=== PATIENT | male | born 1955 | race Caucasian/White ===

== ENCOUNTER 2024-12-27 13:07 | Outpatient (AMB) | payer OTHER, SELFPAY ==
--- NOTE | 2024-12-27 13:07 | A.OFFVIS_ITS ---
Intake Visit Reasons: Bladder mass new patient visit Intake Note: New patient presents today for initial visit for bladder mass Urology Medication:None Blood Thinner:None Antibiotic Allergies:None Allergies No Known Allergies Allergy (Verified 12/27/24 13:08) Medication List - Last Reconciled 12/27/24 by Lily García MD dulaglutide (Trulicity) mg subcut levothyroxine 150 mcg PO DAILY lisinopril 20 mg PO DAILY metformin ER 1,000 mg PO BID pregabalin 50 mg PO BID rosuvastatin 20 mg PO BEDTIME sulfamethoxazole-trimethoprim 800-160 mg 1 tab PO BID HPI Comments Details: 12/27/24--Rafita is a 69-year-old male who presents for a tele video new patient visit due to hematuria and bladder mass. The patient states he saw blood in his urine and was treated for urinary tract infection after which the hematuria resolved. 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 The patient states limited nicotine use, he smoked occasional cigars over 2 year period about 30 years ago. Denies FH prostate cancer, states MGM had skin cancer. I have reviewed the referral note the patient had an ultrasound retroperitoneum noting a 1.1 cm posterior right-sided bladder mass, right kidney lower pole cyst 4.9 cm. Plan discussed further evaluation with CT urogram and office cystoscopy. We will check PSA screening. [facility] Medical History Obesity Thyroid disease Diabetes type 2 Osteoarthritis Sleep apnea Hypertension Review of Systems Const All systems reviewed & are unremarkable except as noted in HPI and below Reports no additional complaints Eyes Reports no additional complaints ENT Reports no additional complaints Card Reports no additional complaints Resp Reports no additional complaints GI Reports no additional complaints Reports as per HPI Musc Reports no additional complaints Skin/Breast Reports system reviewed and no additional complaints, except as documented Neuro Reports no additional complaints Psych Reports no additional complaints Endo Reports no additional complaints Ankit/Lymph Reports no additional complaints Aller/Immun Reports no additional complaints Physical Exam Const General: healthy appearing and no acute distress Orientation/consciousness: patient oriented x3 HEENT Head: Yes normocephalic and Yes atraumatic Eyes Conjunctivae: conjunctivae normal Neck Neck: Yes normal visual inspection Resp Effort & Inspection: normal respiratory effort Neuro General: patient oriented x3 Psych Appearance: grossly normal Affect: normal affect Telehealth Telehealth Telehealth Platform: [employer] Location of provider rendering services: practice address Location of patient: address on file Patient Identification confirmed using: Name, : Yes Telehealth method: video Patient verbally consented to treatment: Yes Patient verbally consented to billing insurance company: Yes Patient informed of any privacy concerns related to visit: Yes Assessment & Plan Assessment & Plan (1) Gross hematuria: Code(s): R31.0 - Gross hematuria Category: Medical (2) Bladder mass: Code(s): N32.89 - Other specified disorders of bladder Category: Medical (3) History of UTI: Code(s): Z87.440 - Personal history of urinary (tract) infections Category: Medical (4) Screening PSA (prostate specific antigen): Code(s): Z12.5 - Encounter for screening for malignant neoplasm of prostate Category: Medical Plan CT urogram, BUN and creatinine, PSA screening, follow-up office cystoscopy Orders: Orders Blood Urea Nitrogen Today N32.89 - Other specified disorders of bladder, R31.0 - Gross hematuria CT urogram Today N32.89 - Other specified disorders of bladder, R31.0 - Gross hematuria Creatinine Today N32.89 - Other specified disorders of bladder, R31.0 - Gross hematuria PSA,Total (Free>4and<10) Today Z12.5 - Encounter for screening for malignant neoplasm of prostate Patient Instructions: The patient had an opportunity to ask questions regarding treatment plan. The patient expressed understanding and agreement with the above treatment plan. The patient is aware they should contact our office by phone for worsening of their current condition or the appearance of new symptoms. Compliance is encouraged with any medications and followup testing that is ordered. It is a privilege to be allowed the opportunity to participate in the urologic care of your patient. If you have any questions or concerns regarding treatment for the above conditions please do not hesitate to contact me. The office telephone contact is [phone]. This note is constructed in part using voice recognition software. While every effort has been made to ensure accuracy solar energy consultant and designer errors may have been included. Yours sincerely, Lily García MD Coding Level of Care Code Tele New Pt Level 4 (18069) Diagnoses Gross hematuria R31.0 Bladder mass N32.89 History of UTI Z87.440 Screening PSA (prostate specific antigen) Z12.5
--- OUTSIDE RECORDS SUMMARY | 2024-12-27 13:41 | XMS_ITS | Data Portability ---
Author Organization [facility], [facility] Address [address] [place] [address] Care Team Providers Care Client Application Support Engineer Name Role Phone TREMAINE RODRIGUEZ Ic Designer [facility] AZALIA LOPEZ Vascular Surgeon PURNIMA PEREZ Primary Care Provider [facility] Orthopedist Assessment Encounter Date Assessment Date Assessment LastModified by Organization Details LastModified Time 02/02/2024 02/02/2024 Visit 4 10 Next visit : Short Term Goals: In 4 weeks, patient will: 1. Perform sit to stand from WC to 2WW in one attempt w/ Min A. 2. Stand for 5 min at p-bars or 2WW w/ UE support as needed and close S. 3. Ambulate for 10 steps using 2WW w/ gait belt and Min A. Skilled Nursing Goals: In 8 weeks, patient will: 1. Perform sit to stand from WC to 2WW in one attempt w/ CGA. 2. Stand independently for 10 min at p-bars or 2WW w/ UE support as needed. 3. Ambulate for 20 feet using 2WW w/ close S. 4. Demonstrate independence with comprehensive HEP. Subjective : I've been having a hard time w/ transportation. I've been doing pretty well standing up out of my WC at home, getting out of bed w/o the isreal lift. It's hard b/c my knees [extend] so slowly. I haven't used the isreal lift in about a month; I've been able to transfer from the bed to my WC using my night stand. I've been practicing standing. Objective : -1st rep of sit to stand from WC to p-bars in 1 attempt w/ use of hands Therex : -reviewed HEP w/ pt, no additions this date. -standing lateral weight shift Therapeutic Activities : to improve functional performance during transfers and standing tolerance -sit to stand at p-bars w/ CGA -standing at p-bars 10 sec, 7 sec, 5 sec, 10 sec Neuromuscular Re-ed : Manual Therapy : Assessment : Advised pt to consider short-term rehab facility for post-surgical rehab as they will have the equipment and personnel to provide more intense rehab than either home-based or outpatient PT. Counseled pt re: importance of increasing his standing tolerance and WB on his R LE if his end goal is to perform ADLs and mobility tasks w/o need for WC. Plan : follow up as needed Access Code: [email or web address] URL: [email or web address] Date: 12/07/2023 Prepared by: Isaura Leigh Exercises - Seated Anterior Weight Shifting - 3 x daily - 7 x weekly - 1 sets - 10 reps - Seated March - 1 x daily - 7 x weekly - 3 sets - 10 reps - Seated Long Arc Quad - 1 x daily - 7 x weekly - 3 sets - 10 reps - Seated Heel Raise - 1 x daily - 7 x weekly - 3 sets - 10 reps - Seated Chair Push Ups - 1 x daily - 7 x weekly - 3 sets - 10 reps - Supine Knee Extension Stretch on Towel Roll - 1 x daily - 7 x weekly - 3 sets - 10 reps Patient Education - Pressure Relief in a Manual Wheelchair [email or web address] Not available 02/02/2024 16:43:19 04/05/2024 04/05/2024 TYPE 2 DIABETES: on metformin and Trulicity in setting of morbid obesity (BMI previously close to 60 but improving in 2017). 2019- off briefly when had no visit and no labs. 2020- Doing well on metformin and trulicity. 08/04: Left foot ulcer. Had cellulitis and course of doxycycline 03/05: Ulcer better. A1c at goal at [facility] 3.0. Will increase to 4.5 to maximize impact on CVD and weight. 08/05: A1c good. Using Trulicity 3.0 because 4.5 unavailable. Pt. to contact pharmacy re:availability. Could also change to Mounjaro (will help weight). 06/06: still trulicity 3 (can't get 4.5) but ongoing wt. loss and a1c at goal. 10/08: Try to switch to Mounjaro (for ongoing weight). 04/07: Doing well on trulicity and metformin. DYSLIPIDEMIA: 05/07 : 132/181/34/62. on simva 20. Given sl increase in LDL and also TG, change to rosuva. 04/07 and 10/08: On rosuva now. labs today. 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 2020- TSH= 0.05 (11/02); lowest than any prior. 08/04: TSH lower at 0.08. Nodules (bx benign) appear to be increasing (PRELIM) 03/05: Going for thyroidectomy (Wil) in 05/06. 08/05: On 150mcg. due for labs but out of med recently (Rx today for 150) 06/06: Stable. 04/07: TSH low. adjust dose. OBESITY: In past, have discussed idea of bariatric surgery (Pt not interested- knows relatives who didn't do great). Had lost 60+ lbs in past with lifestyle changes. 7 grandkids may be a reason (8 down to 2) 2020- continues to do well with efforts to lose weight. 2021: Planning for residential in 04/05 and hopes to pursue better habits. Some limitations on walking due to left foot numbness (spinal stenosis). 06/06: Has done great with metformin/trulici ty (only 3- can't get 4.5). 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 10/08: In wheelchair. 04/07: in wheelchair with plans for cervical spine surgery. Has lost weight. Enhanced Provider time spent performing enhanced activities which may include, but are not limited to: reviewing tests, obtaining and/or reviewing patient history; ordering medications, test or procedures; EMR documentation; communication with patient, family, caregiver(s), VNA; pre-visit prep time communication with specialists, ER staff. Time spent: 41 (minutes) 04/07 10/08: change to mounjaro (weight). encourage PT (maybe aquaerobic/pool tx); emphasize foot care. 04/07: trulicity/metform in: a1c at goal. thyroid- adjust dose (TSH low). 150mcg x 6.5/7. [email or web address] Not available 04/05/2024 14:38:16 07/02/2024 07/02/2024 We completed you r Medicare Wellness exam today. This was an opportunity to assess your overall well being including your ability to care for yourself, your mobility, memory, mental health, as well as your safety. With advancing age, it is important to assign someone in your life as your Health Care Proxy (HCP). This person should know what is important to you and what your wishes are for medical procedures if you cannot communicate your wishes yourself (severe illness, unconsciousness). We discussed having a completed Health Care Proxy form today. In addition, today we started a conversation about your End of Life wishes. These conversations will continue over the years. Please consider reading the book, Being Mortal by Isaiah Becker to help frame future conversations. We discussed the purpose of a MOLST form (Medical Orders for Life Sustaining Treatment) and completed this form if appropriate per your wishes. Vision and Hearing are senses that are critically important as we age. When impaired, they can contribute to memory loss, falls, and make it harder to drive, talk to family and friends, and engage in the world. Please get your vision checked yearly and your hearing checked when you start to notice hearing loss. We discussed approaches to lowering your risk of heart disease and stroke . Your blood pressure is higher than goal consider losing weight and lowering your salt intake. Your cholesterol is at goal. We discussed cancer screening you may need as well as vaccines to prevent infections. Colon Cancer : Your risk of colon cancer is average. Due for colorectal screenin. If you are not planning to have a colonoscopy please screen with stool cards yearly. Prostate Cancer : PSA testing for ages 55-69 risks and benefits discussed patient declines testing. Influenza Vaccine : Flu shot yearly. Tetanus Vaccine : Every 10 years. Due: 2023. The following vaccines are available from your pharmacy: Pneumonia Vaccine : PCV20: once after age 65. Shingles Vaccine : 2 shots after age 50. Covid Vaccine : Make sure you have received the most up to date covid vaccine. Your personal health goal for the year is: [email or web address] Not available 07/02/2024 10:01:26 12/06/2024 12/06/2024 TYPE 2 DIABETES: on metformin and Trulicity in setting of morbid obesity (BMI previously close to 60 but improving in 2017). 2019- off briefly when had no visit and no labs. 2020- Doing well on metformin and trulicity. 08/04: Left foot ulcer. Had cellulitis and course of doxycycline 03/05: Ulcer better. A1c at goal at trulicity 3.0. Will increase to 4.5 to maximize impact on CVD and weight. 08/05: A1c good. Using Trulicity 3.0 because 4.5 unavailable. Pt. to contact pharmacy re:availability. Could also change to Mounjaro (will help weight). 06/06: still trulicity 3 (can't get 4.5) but ongoing wt. loss and a1c at goal. 10/08: Try to switch to Mounjaro (for ongoing weight). 04/07: Doing well on trulicity and metformin. 12/07: continue same regimen. Concerned about ACR but high value at time of UTI. Repeat in 4-6 weeks. DYSLIPIDEMIA: 05/07 : 132/181/34/62. on simva 20. Given sl increase in LDL and also TG, change to rosuva. 04/07 and 10/08: On rosuva now. labs today. 12/07: OK on rosuva POST-OPERATIVE HYPOTHYROIDISM- Hx of MNG with subclinical hyperthyroidism - s/p Thyroidectomy by Wil 05/06. 2020- TSH= 0.05 (11/02); lowest than any prior. 08/04: TSH lower at 0.08. Nodules (bx benign) appear to be increasing (PRELIM) 03/05: Going for thyroidectomy (Wil) in 05/06. 08/05: On 150mcg. due for labs but out of med recently (Rx today for 150) 06/06: Stable. 04/07: TSH low. adjust dose. 12/07: doing OK on 150 x 6.5/7. OBESITY: In past, have discussed idea of bariatric surgery (Pt not interested- knows relatives who didn't do great). Had lost 60+ lbs in past with lifestyle changes. 7 grandkids may be a reason (8 down to 2) 2020- continues to do well with efforts to lose weight. 2021: Planning for residential in 04/05 and hopes to pursue better habits. Some limitations on walking due to left foot numbness (spinal stenosis). 06/06: Has done great with metformin/trulici ty (only 3- can't get 4.5). 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 10/08: In wheelchair. 04/07: in wheelchair with plans for cervical spine surgery. Has lost weight. 12/07: Improving some and able to use walker. encourage efforts 10/08: change to mounjaro (weight). encourage PT (maybe aquaerobic/pool tx); emphasize foot care. 04/07: trulicity/metform in: a1c at goal. thyroid- adjust dose (TSH low). 150mcg x 6.5/7. 12/07: ACR up but had UTI. repeat in 3 months. [email or web address] Not available 12/06/2024 12:12:59 Plan of Treatment Reminders Order Date Submit Date Provider Last Modified By Organization Details Last Modified Time Details Appointments Medica l Manage ment 30 2024 09:30A M ISSA BOWEN Not available Not available Not available Alicia matthews Eye Exam, 20 Min 2024 10:40A M Adelita Navarro OD Not available Not available Not available Follow Up, 40 2024 09:20A M Tremaine Rodriguez MD Not available Not available Not available Lab T4, free, serum 2024 025 [facility], [address] [place] [address], [id number], 12/17/2024 15:18:55 TSH, serum or plasma 2024 025 [facility], [address] [place], [address], 12/17/2024 15:18:55 microa lbumin /creat inine, ratio panel, urine - to be done in 12/2024 - separa te from any other standi ng orders . 2024 025 [facility], [address] [place] [address], [id number], 12/17/2024 15:18:56 HbA1c (hemog lobin A1c), blood 2024 025 [facility], [address] [place] [address], [id number], 12/17/2024 15:18:56 microa lbumin /creat inine, ratio panel, urine 2024 025 [facility], [address] [place] [address], [id number], 12/17/2024 15:18:56 CMP, serum or plasma 2024 025 [facility], [address] [place] [address], [id number], 12/17/2024 15:18:56 lipid panel, serum 2024 025 [facility], [address] [place] [address], [id number], 12/17/2024 15:18:56 cultur e, urine 2024 025 [facility], [address] [place] [address], [id number], 11/25/2024 17:48:35 fecal occult blood, immuno assay, stool - Lab- Create annual order [facility] h -IFO BT order set. 2023 024 [facility], [address] [place] [address], [id number], 12/17/2024 15:18:55 T4, free, serum 2023 024 [facility], [address] [place] [address], [id number], 11/22/2024 15:42:27 TSH, serum or plasma 2023 024 [facility], [address] [place] [address], [id number], 11/22/2024 16:13:03 HbA1c (hemog lobin A1c), blood 2023 024 [facility], [address] [place] [address], [id number], 11/22/2024 14:00:37 microa lbumin /creat inine, ratio panel, urine 2023 024 [facility], [address] [place] [address], [id number], 11/22/2024 16:43:40 CMP, serum or plasma 2023 024 [facility], [address] [place] [address], [id number], 11/23/2024 12:43:22 lipid panel, serum 2023 024 [facility], [address] [place] [address], [id number], 11/23/2024 12:43:23 Referral urolog ist referr al - edward hematu lali, hx of well contro lled T2DM, simple cyst on R kidney ; 1.1 cm dictaphone operator ior R sided bladde r mass ; R renal cyst 4.9 cm. 2024 025 aramis Calix MD, [address] [place] [address] Dr Brennen Adriana, [place], [id number], 11/27/2024 15:57:42 Procedures None record ed. Surgeries None record ed. Imaging US, retrop eriton eum - edward hematu lali, hx of benign cyst on R kidney 2024 025 [facility] (Imaging), [address] , [place], [address], 11/22/2024 13:06:17 Medication Orders Debrox 6.5 % ear drops 2023 025 [id number], [address] [place], [address], 12/06/2024 10:20:09 pregab elia 50 mg capsul e 2023 024 [email or web address], [address] [place], [address], 07/02/2024 11:56:42 Patient TargetsNo targets recorded. Patient Instructions Encounter Date Encounter Id Patient Instructions Last Modified By Organization Details Last Modified Time 04/05/2024 [id number] - Get labs done every 3 months - Stay on metformin - Stay on Trulicity 4.5 weekly. - Get labs done as ordered- now and every 3 months. - Lotion to feet. - Contact office if any symptoms of excess thyroid (heart racing, unexplained weight loss, feeling jittery/nervous/ anxious, change in frequency of moving bowels, tremors, or insomnia) - Continue taking thyroid hormone every day away from other food and especially from other minerals like calcium (dairy), iron, magnesium, etc. - Contact office if any symptoms of low thyroid (excess fatigue, unexplained weight gain, feeling much more cold than usual, constipation, very dry skin) or excess thyroid (heart racing, unexplained weight loss, feeling jittery/nervous/ anxious, change in frequency of moving bowels, tremors, or insomnia) - Stay on rosuvastatin. [email or web address] Not available 04/05/2024 14:34:16 6+ months/ 40 minutes in [facility]. [email or web address] Not available 04/05/2024 14:35:57 07/02/2024 [id number] It was a pleasure to see you today! Keep up to date on recommended screenings and vaccines that we discussed today - Remember to drink plenty of water (1-2 liters a day), keep moving (30 minutes moderate exercise at least 5 days/week), and eat a diet high in plant materials (fruit, veggies, nuts, and beans), lean protein, and healthy sources of fats, and minimal processed foods and red meats. Review the website OldKisstixxpt.org to get more information on the Mediterranean diet, a heart healthy eating plan. Check out Popsugar, Fitness Flarer, Yoga with Matheus or Walk Away the Pounds on youtube for free exercise videos. - Maintain 1200 mg of calcium from food sources daily. Vitamin D 800-1000 units daily can help the absorption of calcium into your bones. - Do regular skin checks and wear sun screen for anytime in the sun greater than 10 minutes. - Regular eye and dental exams Consider STI testing when with new partners - Return in 1 year [email or web address] Not available 07/02/2024 08:35:46 11/22/2024 [id number] Assessment and Plan Diabetes mellitus without complications Hematuria [email or web address] Not available 11/22/2024 19:51:37 12/06/2024 [id number] - Get labs done every 3 months - Stay on metformin - Stay on Trulicity 4.5 weekly. - Get labs done as ordered- now and every 3 months. - Lotion to feet. - Contact office if any symptoms of excess thyroid (heart racing, unexplained weight loss, feeling jittery/nervous/ anxious, change in frequency of moving bowels, tremors, or insomnia) - Continue taking thyroid hormone every day away from other food and especially from other minerals like calcium (dairy), iron, magnesium, etc. - Contact office if any symptoms of low thyroid (excess fatigue, unexplained weight gain, feeling much more cold than usual, constipation, very dry skin) or excess thyroid (heart racing, unexplained weight loss, feeling jittery/nervous/ anxious, change in frequency of moving bowels, tremors, or insomnia) - Stay on rosuvastatin. Not available 10/03/2024 13:12:56 6+ months/ 40 minutes in [facility]. Not available 10/03/2024 13:12:56 Reason for Referral Urologist Referral for Emery hematuria gross hematuria, hx of well controlled T2DM, simple cyst on R kidney; 1.1 cm posterior R sided bladder mass ; R renal cyst 4.9 cm. Referring Physician: Janet Fregoso, Family Medicine, Encounter Date: 11/22/2024 Results Created Date Observation Date Name Description Value Unit Range Abnormal Flag Note LastModifiedBy Organization Detail LastModifiedTime 02/02/20 24 02/02/2024 VITAM IN D 25-HY DROXY TOTAL vitamin D 25-hydroxy EIA 26.0 NG/mL 20.0-9 9.9 Thera py is based on measu remen t of total 25-OH D, with level s less than 20 ng/mL indic ative of Vitam in D defic iency . Level s betwe en 20ng/ mL and 30 ng/mL sugge st insuf ficie ncy. Optim al Level s are great er than 30 ng/mL . Not Available [address], [address], 02/02/2024 15:45:15 03/15/20 24 03/15/2024 CBC WBC 7.24 K/? ? ?L 4.23-9 .07 Not Available [address], [address], 03/15/2024 10:34:09 03/15/20 24 03/15/2024 CBC RBC 5.46 M/? ? ?L 4.63-6 .08 Not Available [address], [address], 03/15/2024 10:34:09 03/15/20 24 03/15/2024 CBC HGB 16.3 g/dL 13.7-1 7.5 Not Available [address], [address], 03/15/2024 10:34:09 03/15/20 24 03/15/2024 CBC HCT 49.2 % 40.1-5 1.0 Not Available [address], [address], 03/15/2024 10:34:09 03/15/20 24 03/15/2024 CBC MCV 90.1 fL 79.0-9 2.2 Not Available [address], [address], 03/15/2024 10:34:09 03/15/20 24 03/15/2024 CBC MCH 29.9 pg 25.7-3 2.2 Not Available [address], [address], 03/15/2024 10:34:09 03/15/20 24 03/15/2024 CBC MCHC 33.1 g/dL 32.3-3 6.5 Not Available [address], [address], 03/15/2024 10:34:09 03/15/20 24 03/15/2024 CBC plt 198 K/? ? ?L 163-33 7 Not Available [address], [address], 03/15/2024 10:34:09 03/15/20 24 03/15/2024 CBC MPV 10.8 fL 9.4-12 .4 Not Available [address], [address], 03/15/2024 10:34:09 03/15/20 24 03/15/2024 CBC neut% 66.0 % 34.0-6 7.9 Not Available [address], [address], 03/15/2024 10:34:09 03/15/20 24 03/15/2024 CBC neut# 4.78 1.78-5 .38 Not Available [address], [address], 03/15/2024 10:34:09 03/15/20 24 03/15/2024 CBC lymph % 20.3 % 21.8-5 3.1 low Not Available [address], [address], 03/15/2024 10:34:09 03/15/20 24 03/15/2024 CBC lymph # 1.47 K/? ? ?L 1.32-3 .57 Not Available [address], [address], 03/15/2024 10:34:09 03/15/20 24 03/15/2024 CBC mono% 7.2 % 5.3-12 .2 Not Available [address], [address], 03/15/2024 10:34:09 03/15/20 24 03/15/2024 CBC mono# 0.52 0.30-0 .82 Not Available [address], [address], 03/15/2024 10:34:09 03/15/20 24 03/15/2024 CBC eo% 5.0 % 0.8-7. 0 Not Available [address], [address], 03/15/2024 10:34:09 03/15/20 24 03/15/2024 CBC eo# 0.36 0.04-0 .54 Not Available [address], [address], 03/15/2024 10:34:09 03/15/20 24 03/15/2024 CBC baso% 1.2 % 0.2-1. 2 Not Available [address], [address], 03/15/2024 10:34:09 03/15/20 24 03/15/2024 CBC baso# 0.09 0.00-0 .08 high Not Available [address], [address], 03/15/2024 10:34:09 03/15/20 24 03/15/2024 CBC RDW-CV 13.2 % 11.6-1 4.4 Not Available [address], [address], 03/15/2024 10:34:09 03/15/20 24 03/15/2024 CBC Ig% 0.300 % 0.000- 1.500 Ig % >0.5 Indic ates possi ble Left Shift Not Available [address], [address], 03/15/2024 10:34:09 03/15/20 24 03/15/2024 CBC Ig# 0.020 0.000- 0.093 Not Available [address], [address], 03/15/2024 10:34:09 03/15/20 24 03/15/2024 CBC NRBC% 0.0 % 0.0-0. 2 Not Available [address], [address], 03/15/2024 10:34:09 03/15/20 24 03/15/2024 CBC NRBC# 0.000 0.000- 0.012 Not Available [address], [address], 03/15/2024 10:34:09 03/15/20 24 03/15/2024 HGB A1C hemoglobin A1C 6.3 % 4.8-6. 0 high Goal: <7% in Patie nts with Diabe linnea An A1c betwe en 5.7-6 .4% is ident ified as pre-d iabet es and sugge sts risk for progr essio n to diabe linnea Two a1c value s of 6.5% or highe r is consi stent with a diagn osis of diabe linnea but may need furth er confi rmati on Not Available [address], [address], 03/15/2024 12:06:03 03/15/20 24 03/15/2024 HGB A1C estimated average glucose 134.1 mg/dL Not Available [address], [address], 03/15/2024 12:06:03 03/15/20 24 03/15/2024 FREE T4 free T4 1.48 NG/dL 0.75-1 .54 Not Available [address] [place], [address], 03/15/2024 14:11:21 03/15/20 24 03/15/2024 TSH TSH 0.10 uIU/m L 0.50-6 .00 low The Amer[employer] can [employer] ge [employer] Endoc rinol ogy and Ameri can Thyro id Assoc iatio n recom mend goal TSH value s betwe en 0.4-4 .0 mIU/m L. Not Available [address], [address], 03/15/2024 14:11:22 11/23/19 25 11/22/2024 HGB A1C hemoglobin A1C 6.8 % 4.8-6. 0 high Goal: <7% in Patie nts with Diabe linnea An A1c betwe en 5.7-6 .4% is ident ified as pre-d iabet es and sugge sts risk for progr essio n to diabe linnea Two a1c value s of 6.5% or highe r is consi stent with a diagn osis of diabe linnea but may need furth er confi rmati on Not Available [address], [address], 11/22/2024 14:00:37 11/23/19 25 11/22/2024 HGB A1C estimated average glucose 148.5 mg/dL Not Available [address], [address], 11/22/2024 14:00:37 11/23/19 25 11/22/2024 FREE T4 free T4 1.25 NG/dL 0.75-1 .54 Not Available [address], [address], 11/22/2024 15:42:27 11/23/19 25 11/22/2024 TSH TSH 0.32 uIU/m L 0.50-6 .00 low The Ameri can [employer]le ge of Endoc rinol ogy and Ameri can Thyro id Assoc iatio n recom mend goal TSH value s betwe en 0.4-4 .0 mIU/m L. Not Available [address], [address], 11/22/2024 16:13:02 11/23/19 25 11/22/2024 MICRO ALBUM IN/CR EATIN INE RATIO PANEL , URINE microalbumin 146.9 mg/L 1.3-20 .0 high VERD= Verif ied by Dilut ion. Not Available [address], [address], 11/22/2024 16:43:40 11/23/19 25 11/22/2024 MICRO ALBUM IN/CR EATIN INE RATIO PANEL , URINE creatinine urine 162.4 mg/dL 30.0-1 25.0 high Not Available [address], [address], 11/22/2024 16:43:40 11/23/19 25 11/22/2024 MICRO ALBUM IN/CR EATIN INE RATIO PANEL , URINE microalb/cre at ratio 90.5 mg/g_ creat 0.0-29 .0 high Not Available [address], [address], 11/22/2024 16:43:40 11/23/19 25 11/23/2024 COMP. METAB OLIC PANEL glucose 108 mg/dL 70-100 high Not Available [address], [address], 11/23/2024 12:43:22 11/23/19 25 11/23/2024 COMP. METAB OLIC PANEL BUN 25 mg/dL 7-18 high Not Available [address], [address], 11/23/2024 12:43:22 11/23/19 25 11/23/2024 COMP. METAB OLIC PANEL creatinine 1.0 mg/dL 0.8-1. 3 Not Available [address], [address], 11/23/2024 12:43:22 11/23/19 25 11/23/2024 COMP. METAB OLIC PANEL B/C 25.0 ratio Not Available [address], [address], 11/23/2024 12:43:22 11/23/19 25 11/23/2024 COMP. METAB OLIC PANEL GFR >=60ML /MIN mL/mi n normal >=60m L/min - Bere l or midly reduc ed <60mL /min- Decre ased kidne y funct ion <15mL /min - Kidne y failu re [facility] calcu lates estim ated Glome rular Filtr ation Rate (eGFR ) using the Chron ic Kidne y Disea se Epide miolo gy Colla borat ion (CKD- EPI) Equat ion (Lamont alarcon et. al 2020) as recom nadya d by the Natio nal Kidne y Found ation . eGFR is based on age, serum creat inine , and sex. CKD-E PI does not calcu late eGFR by race, does not apply to child rambo (age <18 years ), and shoul d not be used in pregn robert. Not Available [address], [address], 11/23/2024 12:43:22 11/23/19 25 11/23/2024 COMP. METAB OLIC PANEL sodium 143 mmol/ L 136-14 5 Not Available [address], [address], 11/23/2024 12:43:22 11/23/19 25 11/23/2024 COMP. METAB OLIC PANEL potassium 5.0 mmol/ L 3.5-5. 1 Not Available [address], [address], 11/23/2024 12:43:22 11/23/19 25 11/23/2024 COMP. METAB OLIC PANEL chloride 104 mmol/ L 96-107 Not Available [address], [address], 11/23/2024 12:43:22 11/23/19 25 11/23/2024 COMP. METAB OLIC PANEL anion gap 16.9 5.0-15 .0 high Not Available [address], [address], 11/23/2024 12:43:22 11/23/19 25 11/23/2024 COMP. METAB OLIC PANEL CO2 22 mmol/ L 21-32 Not Available [address], [address], 11/23/2024 12:43:22 11/23/19 25 11/23/2024 COMP. METAB OLIC PANEL calcium 9.5 mg/dL 8.5-10 .3 Not Available [address], [address], 11/23/2024 12:43:22 11/23/19 25 11/23/2024 COMP. METAB OLIC PANEL total protein 7.9 g/dL 6.4-8. 2 Not Available [address], [address], 11/23/2024 12:43:22 11/23/19 25 11/23/2024 COMP. METAB OLIC PANEL albumin 4.1 g/dL 3.4-5. 0 Not Available [address], [address], 11/23/2024 12:43:22 11/23/19 25 11/23/2024 COMP. METAB OLIC PANEL globulin 3.8 g/dL Not Available [address], [address], 11/23/2024 12:43:22 11/23/19 25 11/23/2024 COMP. METAB OLIC PANEL A/G 1.1 ratio 0.8-2. 0 Not Available [address], [address], 11/23/2024 12:43:22 11/23/19 25 11/23/2024 COMP. METAB OLIC PANEL total bilirubin 0.60 mg/dL 0.00-1 .00 Not Available [address], [address], 11/23/2024 12:43:22 11/23/19 25 11/23/2024 COMP. METAB OLIC PANEL AST 25 U/L 0-37 Not Available [address], [address], 11/23/2024 12:43:22 11/23/19 25 11/23/2024 COMP. METAB OLIC PANEL ALT 47 U/L 6-63 Not Available [address], [address], 11/23/2024 12:43:22 11/23/19 25 11/23/2024 COMP. METAB OLIC PANEL alk. phos. 42 U/L 50-136 low Not Available [address], [address], 11/23/2024 12:43:22 11/23/19 25 11/23/2024 LIPID PANEL cholesterol 99 mg/dL <200 mg/dl Jai able 200-2 39 mg/dl Borde rline High >240 mg/dl High Not Available [address], [address], 11/23/2024 12:43:23 11/23/19 25 11/23/2024 LIPID PANEL triglyceride s 90 mg/dL <150 mg/dL Bere l 150-1 99 mg/dL Borde rline High 200-4 99 mg/dL High >500 mg/dL Very High Not Available [address], [address], 11/23/2024 12:43:23 11/23/19 25 11/23/2024 LIPID PANEL direct HDL 43 mg/dL <40 mg/dl - Major Risk for CHD >60 mg/dl - Negat sudarshan Risk for CHD Not Available [address], [address], 11/23/2024 12:43:23 11/23/19 25 11/23/2024 LDL - CALCU LATED LDL - calculated 38 RISK CATEG ORY LDL GOAL _ CHD or CHD Risk Equiv alent s <100 mg/dl (10-y ear risk >20%) 2+ Risk Facto rs <130 mg/dl (10-y ear risk <= 20%) 0-1 Risk Facto r? <160 mg/dl ? Almos t all peopl e with 0-1 risk facto r have a 10 year risk <10%, thus 10 year risk asses ment in peopl e with 0-1 risk facto r is not may vasquez. Not Available [address], [place], [address], 11/23/2024 12:43:24 11/23/19 25 11/25/2024 CULTU RE, URINE , ROUTI NE culture, urine, routine abnormal CULTU RE, URINE , ROUTI NE Micro Numbe r: [id number] Test Statu s: Final Speci men Sourc e: Urine Speci men Quali ty: Adequ ate Resul t: Great er than 100,0 00 CFU/m L of Prote us mirab ilis P.lowell abili s ----- ----- ----- - INT DION AMOX/ CLAVU LANAT E S <=2 AMP/S ULBAC BRISCOE S <=2 CEFAZ LETTY NR <=4 2 CEFEP SELAM S <=0.1 2 CEFTA ZIDIM E S <=1 CEFTR IAXON E S <=0.2 5 CIPRO FLOXA MADISON S <=0.0 6 GENTA MICIN S <=1 LEVOF LOXAC IN S <=0.1 2 MEROP ENEM S <=0.2 5 NITRO FURAN TOIN R 128 PIP/T AZOBA CTAM S <=4 TRIME THOPR IM/ALVAREZ LFA S <=20 S = Susce ptibl e I = Inter media te R = Resis tant NS = Not susce ptibl e SDD = Susce ptibl e Dose Depen dent * = Not Teste d NR = Not Repor maribel NN = See Thera py Comme nts THERA PY COMME NTS Note 1: For infec tions other than uncom plica maribel UTI cause d by E. coli, K. pneum oniae or P. mirab ilis: Cefaz letty is resis tant if DION > or = 8 mcg/m L. (Dist ingui shing susce ptibl e versu s inter media te for isola linnea with DION < or = 4 mcg/m L requi res addit ional testi ng.) Note 2: For uncom plica maribel UTI cause d by E. coli, K. pneum oniae or P. mirab ilis: Cefaz letty is susce ptibl e if DION <32 mcg/m L and predi cts susce ptibl e to the oral agent s cefac felice, cefdi sheryl, cefpo doxim e, cefpr ozil, cefur oxime , cepha lexin and lorac arbef . Not Available [facility] [place] [facility] [address], [place], [address], 11/25/2024 17:48:35 11/23/19 25 11/22/2024 US, retro perit oneum CLINIC AL HISTOR Y: Gross hematu lali TECHNI QUE: 2D sonogr aphy of the kidney s and bladde r. COMPAR CHACORTA: None. FINDIN GS: Study is limite d by body habitu s. Right kidney 12.3 x 7 cm The right kidney is normal in echote xture. There are no solid masses , stones , or hydron ephros is. There is a lower pole simple cyst measur ing 4.2 x 4.9 x 4.5 cm. Left kidney 13 x 6.4 cm The left kidney is normal in echote xture. There are no solid masses , stones , or hydron ephros is. Ureter al jets are visual ized bilate rally. The there is an echoge patel mass at the dictaphone operator ior right aspect of the bladde r measur ing 0.8 x 1.1 x 1 cm. This is indete rminat e but may repres ents a neopla sm. Recomm end furthe r evalua tion with cystos copy. . The prevoi d bladde r volume is 145.9 mL. The post void bladde r volume is 7.8 mL. The prosta te was not seen due to patien t's body habitu s IMPRES HEMAL: 1. 1.1 cm dictaphone operator ior right- sided bladde r mass. Recomm end furthe r evalua tion with cystos copy. 2. Lower pole right renal cyst measur ing 4.9 cm. Readin g Physic indio: Km Holguin [facility] (Imaging) [address] , [place], [address], 11/23/2024 13:07:09 Result Notes None recorded. 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 653730197 Active Tremaine Rodriguez MD [address] [place] [address], , [facility] 6 11:10:23 Diabetes mellitus 04153171 Completed 09/28/2018 Michael Cordova MD [address] [place] [address], , [facility] 9 14:55:54 Dizzines s 935185557 Active Tremaine Rodriguez MD [address] [place] [address], , [facility] 6 11:10:23 Subdural intracra nial hematoma 35639090 Active 2019October 2019 ANGÉLICA Villavicencio [address] [place] [address], , [facility] 0 14:28:06 Serum creatini ne above referenc e range 293415072 Active 2022 ANGÉLICA GARNETT [address] [place] [address], , [facility] 3 11:13:25 Bilatera l hand weakness 37194714414 121262 Active 2023 ANGÉLICA GARNETT [address] [place] [address], [address] , [facility] 4 10:14:36 Cervical spondylo sis 948918839 Active 2023 NEOS 07/08 offered surgery ANGÉLICA GARNETT [address] [place] [address], [address] , [facility] 4 13:38:33 Mass of urinary bladder 795528624 Active 2024 Janet Fregoso MD [address] [place] [address], [address] , [facility] 5 19:54:21 Sleep apnea 70815478 Completed 200304/01/2016 Michael Cordova MD [address] [place] [address], [address] , [facility] 6 15:47:30 Cellulit is 623499957 Completed 200704/25/2012 Not Available [facility] 3 03:10:52 Essentia l hyperten hemal 15066835 Completed 04/25/2012 Not Available [facility] 3 03:10:52 Non-toxi c uninodul ar goiter 392012990 Completed 10/24/2012 Not Available [facility] 3 03:10:52 Ulcer of foot 63667371 Completed 07/04/2013 Not Available [facility] 3 02:04:17 Osteoart hritis of knee 348668479 Completed 200404/25/2012 Not Available [facility] 3 03:10:52 Spinal stenosis of lumbar region 48936258 Active 2006 eval by P&S xray done 06/06 MRI 07/07 SEVERE DISC STENOSIS L2[facility]07 ANGÉLICA GARNETT [address] [place] [address], [address] , [facility] 4 11:01:43 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 86821567 Active Not Available [facility] 3 03:10:52 Thyroid function tests abnormal 737336511 Completed 09/28/2018 Michael Cordova MD [address] [place] [address], [address] , [facility] 9 14:55:35 Thyroid function tests abnormal 337758850 Completed 10/24/2012 Michael Cordova MD [address] [place] [address], [address] , [facility] 9 14:55:35 Benign essentia l hyperten hemal 7228337 Active 2003 Michael Cordova MD [address] [place] [address], [address] , [facility] 6 21:19:04 Disorder of nervous system due to type 2 diabetes mellitus 718909683 Completed 02/01/2023 ANGÉLICA GARNETT [address] [place] [address], [address] , [facility] 3 10:01:26 Acute suppurat sudarshan otitis media without spontane ous rupture of ear drum 68614885 Completed 200304/25/2012 Not Available [facility] 3 03:10:52 Sciatica 20298464 Active 2006 Not Available [facility] 3 03:10:52 Localize d, primary osteoart hritis 344727015 Completed 200404/25/2012 Not Available [facility] 3 03:10:52 Finding by method 991161139 Completed 200004/25/2012 Not Available [facility] 3 03:10:52 Pneumoni a 764773294 Completed 200004/25/2012 Not Available [facility] 3 03:10:52 Common cold 69651983 Completed 200004/25/2012 Not Available [facility] 3 03:10:52 Knee pain Completed 10/24/2012 Not Available [facility] 3 03:10:52 Obstruct sudarshan sleep apnea syndrome 20019211 Active Tremaine Rodriguez MD [address] [place] [address], [address] , [facility] 6 11:10:23 Non-toxi c multinod ular goiter 44330888 Active benign b 2019; assympto matic hyperthy rodism (needs TFT q 3 months) Michael Cordova MD [address] [place] [address], [address] , [facility] 9 18:12:30 Acute maxillar y sinusiti s 64371373 Completed 200304/25/2012 Not Available [facility] 3 03:10:52 Elevated blood-pr essure reading without diagnosi s of hyperten hemal 201374244 Completed 200304/25/2012 Not Available [facility] 3 03:10:52 Morbid obesity 150167222 Active 2003 Michael Cordova MD [address] [place] [address], [address] , [facility] 6 19:30:33 Uncontro lled type 2 diabetes mellitus 453895212 [facility] 5 14:54:08 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 Not Available [facility] 3 03:10:52 Low back pain 367197147 Active 2006 Not Available [facility] 3 03:10:52 Generali zed osteoart hritis 956160095 Active 2004 xrays bilat knee 09/2022- severe degen change ANGÉLICA GARNETT [address] [place] [address], [address] , [facility] 3 14:20:51 Disorder of lower limb 840893940 Completed 07/04/2013 Not Available [facility] 3 02:03:21 Disorder of lower limb 713282116 Completed 200704/25/2012 Not Available [facility] 3 03:10:52 Acute bronchit is 92382296 Completed 200004/25/2012 Not Available [facility] 3 03:10:52 Problem Notes None recorded. Procedures Surgical History Date Name Laterality Status Provider Name and Address Organization Details Recorded Time 07/02/20 Medicare Wellness Visit completed Suzy Rivera MA [facility] 07/02/2024 08:35:47 07/02/20 Cerumen Removal - Irrigation/Lavage completed Suzy Rivera MA [facility] 07/02/2024 10:45:57 07/02/20 Cardiovascular disease risk reduction counseling completed Suzy Rivera MA [facility] 07/02/2024 08:35:46 02/02/20 80398: Therapeutic Exercise completed Isaura Helms, PT [address] [place], [address], [facility] 02/02/2024 10:34:51 02/02/20 23440: Therapeutic Activities - Direct 1:1 completed Isaura Helms, PT [address] [place], [address], [facility] 02/02/2024 10:34:51 12/21/19 47265: Therapeutic Exercise completed Isaura Helms, PT [address] [place], [address], [facility] 12/21/2023 11:00:10 12/21/19 53738: Therapeutic Activities - Direct 1:1 completed Isaura Helms, PT [address] [place], [address], [facility] 12/21/2023 11:00:10 12/07/19 63876: Therapeutic Exercise completed Isaura Helms, PT [address] [place], [address], [facility] 12/07/2023 17:34:25 12/07/19 18688: Therapeutic Activities - Direct 1:1 completed Isaura Helms, PT [address] [place], [address], [facility] 12/07/2023 17:34:19 11/09/19 Physical Activity Counselling completed Isaura Helms, PT [address] [place], [address], [facility] 11/08/2023 17:50:19 11/09/19 24 31309: PT Eval, Moderate Complexity completed Isaura Helms, PT [address] [place], [address], [facility] 11/12/2023 08:28:28 11/09/19 24 Treatment and Advice completed Isaura Helms, PT [address] [place], [address], [facility] 11/12/2023 08:23:04 05/26/20 23 Physical Activity Counselling completed Isaura Helms, PT [address] [place], [address], [facility] 05/26/2023 08:31:59 05/26/20 92800: PT Eval Low Complexity completed Isaura Helms, PT [address] [place], [address], [facility] 05/26/2023 08:31:59 05/26/20 Treatment and Advice completed Isaura Helms, PT [address] [place], [address], [facility] 05/29/2023 09:03:07 03/02/20 90520: Therapeutic Exercise completed Isaura Helms, PT [address] [place], [address], [facility] 03/02/2023 16:09:31 03/02/20 17850: Manual Therapy completed Isaura Helms, PT [address] [place], [address], [facility] 03/02/2023 16:09:35 02/17/20 93805: Therapeutic Exercise completed Isaura Helms, PT [address] [place], [address], [facility] 02/16/2023 09:16:14 02/17/20 56103: Manual Therapy completed Isaura Helms, PT [address] [place], [address], [facility] 02/16/2023 09:16:22 02/10/20 23 Smoking Cessation Counselling completed Isaura Helms, PT [address] [place], [address], [facility] 02/09/2023 07:22:40 02/10/20 23 Physical Activity Counselling completed Isaura Helms, PT [address] [place], [address], [facility] 02/09/2023 07:22:40 02/10/20 23 09341: PT Eval Low Complexity completed Isaura Helms, PT [address] [place], [address], [facility] 02/09/2023 07:22:40 02/10/20 23 Treatment and Advice completed Isaura Helms, PT [address] [place], [address], [facility] 02/09/2023 09:21:37 12/16/19 23 Medicare Wellness Visit completed Catalina Jefferson MA [facility] 12/15/2022 14:46:55 02/20/20 21 prevention-cardiov ascular risk reduction counseling completed Mita Jerome Jorge Alberto [facility] 02/19/2021 09:58:54 02/20/20 21 prevention-annual alcohol misuse screening completed Mita Jerome [facility] 02/19/2021 09:58:54 02/20/20 21 Advanced Care Planning completed ANGÉLICA Villavicencio [address] [place], [address], [facility] 02/19/2021 13:10:48 06/25/20 20 prevention-cardiov ascular risk reduction counseling cancelled Mita Jerome Jorge Alberto [facility] 06/25/2020 13:43:00 06/25/20 20 prevention-annual alcohol misuse screening cancelled Mita Jerome [facility] 06/25/2020 13:43:00 10/17/19 20 evacuation of subdural hematoma completed Lorraine Bañuelos LPN [facility] 05/08/2020 08:33:09 02/10/20 18 Diabetic Retinal Exam completed Maura Pearl LPN [facility] 02/09/2018 12:11:02 12/22/19 18 Pen Teaching completed Tremaine Rodriguez MD [address] [place], [address], [facility] 12/21/2017 15:34:52 04/21/20 17 Pen Teaching completed Tremaine Rodriguez MD [address] [place], [address], [facility] 04/21/2017 14:47:03 11/18/19 17 Pen Teaching completed Tremaine Rodriguez MD [address] [place], [address], [facility] 11/17/2016 09:28:51 04/15/20 16 Pen Teaching completed Shanda Simms [facility] 04/15/2016 11:54:13 01/01/20 16 Holter Monitor Application completed Margaret Payton [facility] 01/01/2016 11:45:39 09/04/19 16 Refraction completed Nadege Paredes [facility] 09/04/2015 14:42:45 Imaging Results Imaging Date Name Status LastModified by Organization Details LastModified Time 11/22/2024 US, retroperitoneum completed [facility] (Imaging) [address], [place], [address], 11/23/2024 13:07:09 Procedure Notes None recorded. Medical Equipment None Reported. Allergies No known drug allergies Medications Name Sig Start Date Stop Date Status Note LastModified by Organization Details LastModified Time Prescript ion - Prior Authoriza tion Request active Not Available Not Available Not Available metformin 500 mg tablet Take 1 tablet every day by oral route. active Not Available Not Available No t Available doxycycli ne hyclate 100 mg capsule Take 1 capsule twice a day by oral route for 10 days. 08/13 completed Not Available Not Available Not Available Lac-Hydri n 12 % topical cream apply to dry areas of feet daily 2012 active Not Available Not Available Not Avai lable hydrocodo ne 5 mg-acetam inophen 325 mg tablet TAKE 1 TABLET BY ORAL ROUTE EVERY 6 HOURS NEEDED FOR PAIN 2011 active prescrib ed by Erendira August as Not Available Not Available Not Available lisinopri l 20 mg tablet TAKE 1 TABLET BY MOUTH EVERY DAY 2024 active Not Available Not Available Not Avai lable doxycycli ne monohydra te 100 mg tablet Take 1 tablet twice a day by oral route for 10 days. 11/16 completed Not Available Not Available Not Available simvastat in 40 mg tablet TAKE 1/2 TABLET BY MOUTH EVERY DAY active Not Available Not Available No t Available doxycycli ne monohydra te 100 mg capsule Take 1 capsule twice a day by oral route for 14 days. 02/07 completed Not Available Not Available Not Available cephalexi n 500 mg capsule Take 1 capsule 3 times a day by oral route for 5 days. 04/14 completed Not Available Not Available Not Available simvastat in 20 mg tablet TAKE 1 TABLET BY MOUTH EVERY DAY 2021 active Not Available Not Available Not Avai lable lisinopri l 10 mg tablet take 1 tablet by mouth once daily 2008 active Not Available Not Available Not Avai lable levothyro xine 150 mcg tablet TAKE 1 TABLET BY MOUTH EVERY DAY DIRECTED 2023 active Not Available Not Available Not Avai lable oxycodone 5 mg capsule Take 1 capsule every 6 hours by oral route as needed. 2011 active Not Available Not Available Not Avai lable ibuprofen 400 mg tablet Take 1 tablet every 4-6 hours by oral route as needed. 2022 active Not Available Not Available Not Avai lable hydrochlo rothiazid e 12.5 mg capsule TAKE ONE CAPSULE BY MOUTH EVERY DAY 05/30 completed Not Available Not Available Not Available gabapenti n 300 mg capsule Take 1 capsule every day by oral route in the evening for 30 days. active Not Available Not Available No t Available Percocet 5 mg-325 mg tablet Take 1-2 TABLETs EVERY 4 HOURS by oral route. 2011 active Not Available Not Available Not Avai lable lisinopri l 40 mg tablet TAKE 1 TABLET BY MOUTH EVERY DAY 09/28 completed Not Available Not Available Not Available metformin ER 500 mg tablet,ex tended release 24 hr TAKE 2 TABLETS BY MOUTH TWICE A DAY 2023 active Not Available Not Available Not Avai lable Tylenol Extra Strength 500 mg tablet Take 2 tablets every day by oral route as needed. 2022 active PRN Not Available Not Available Not Avai lable rosuvasta tin 20 mg tablet TAKE 1 TABLET BY MOUTH EVERY DAY 2024 active Not Available Not Available Not Avai lable duloxetin e 60 mg capsule,d elayed release TAKE 1 CAPSULE BY MOUTH EVERY DAY 05/25 completed pt not taking 05/18/23 LRD Not Available Not Available Not Available OneTouch UltraSoft Lancets with blood sugar testing tid or as directed 11/17 completed Not Available Not Available Not Available Byetta 10 mcg/dose( 250 mcg/mL)2. 4 mL subcutane ous pen injector INJECT 10MCG SUBCUTAN EOUSLY TWICE A DAY 12/21 completed 12/21/17 changed to bydureon 2 mg weekly per [facility]. Not Available Not Available Not Available pregabali n 50 mg capsule Take 1 capsule twice a day by oral route. 2024 active Not Available Not Available Not Avai lable pregabali n 75 mg capsule Take 1 capsule twice a day by oral route for 30 days. 09/10 completed Not Available Not Available Not Available pregabali n 100 mg capsule Take 1 capsule twice a day by oral route. 2022 active Not Available Not Available Not Avai lable multivita min active daily Not Available Not Available Not Available hydrochlo rothiazid e 12.5 mg tablet TAKE 1 TABLET BY MOUTH ONCE DAILY 2011 active Not Available Not Available Not Avai lable Fish Oil 1,000 mg capsule 1 cap daily 09/15 completed pt not taking 05/30/23 LRD; stopped by dr Tremaine Rodriguez MD Not Available Not Available Not Available diclofena c 1 % topical gel APPLY 2 GRAMS TO THE AFFECTED AREA(S) BY TOPICAL ROUTE 4 TIMES PER DAY NEEDED 2023 active Not Available Not Available Not Avai lable levothyro xine 150 mcg capsule Take 1 capsule every day by oral route. active Not Available Not Available No t Available Accu-Chek Lisa Plus test strips USE DIRECTED TO CHECK BLOOD GLUCOSE 3 TIMES A DAY. 2023 active LV 05/08/20, [place] 09/11/19, labs 04/18/20 Not Available Not Available Not Available Accu-Chek FastClix Lancing Device kit Use as directed to check blood glucose 3 times a day. 2018 active Not Available Not Available Not Avai lable Tanzeum 30 mg/0.5 mL subcutane ous pen injector Inject 0.5 mL subcut once weekly on the same day each week. 11/17 completed Not Available Not Available Not Available Bydureon 2 mg/0.65 mL subcutane ous pen injector Inject 2 mg every week by subcutan eous route. 11/30 completed was changed to trulicit y Not Available Not Available Not Available Trulicity 1.5 mg/0.5 mL subcutane ous pen injector INJECT 0.5 ML EVERY WEEK BY SUBCUTAN EOUS ROUTE. active Not Available Not Available No t Available Trulicity 0.75 mg/0.5 mL subcutane ous pen injector INJECT 0.5 ML SUBCUTAN EOUSLY ONCE WEEKLY. 05/19 completed Not Available Not Available Not Available Accu-Chek Guide Glucose Meter Check blood sugars daily 2020 active Not Available Not Available Not Avai lable Trulicity 3 mg/0.5 mL subcutane ous pen injector INJECT 3 MG SUBCUTAN EOUSLY WEEKLY 04/05 completed Not Available Not Available Not Available Trulicity 4.5 mg/0.5 mL subcutane ous pen injector INJECT 4.5 MG EVERY WEEK BY SUBCUTAN EOUS ROUTE. DX E11.65 2024 active Not Available Not Available Not Avai lable Mounjaro 10 mg/0.5 mL subcutane ous pen injector 12/19 completed insuranc e denied Not Available Not Available Not Available Vitals Date Recorded Body height Heart rate Systolic blood pressure Diastolic blood pressure Provider Name and Address Organization Details Last Updated DateTime 04/05/2024 167.64 cm 69 /min 117 mm[Hg] 75 mm[Hg] Misa RobbalexKUSHAL [facility] 04/05/2024 13:51:54 Date Recorded Body height Body mass index (BMI) Body weight Heart rate Systolic blood pressure Diastolic blood pressure Provider Name and Address Organization Details Last Updated DateTime 4 167.64 cm 47.9 kg/m2 377040. 93 g 76 /min 128 mm[Hg] 80 mm[Hg] [facility] 09:[facility]16 Date Recorded Body height Body mass index (BMI) Body weight Heart rate Systolic blood pressure Diastolic blood pressure Provider Name and Address Organization Details Last Updated DateTime 5 167.64 cm 50.5 kg/m2 384890. 41 g 76 /min 124 mm[Hg] 78 mm[Hg] [facility] 5 09:33:54 Date Recorded Body height Body mass index (BMI) Body weight Provider Name and Address Organization Details Last Updated DateTime 12/06/2024 167.64 cm 50.5 kg/m2 463893.41 g Deepika Johnson [facility] 12/06/2024 10:19:10 Social History Question Answer Notes LastModified by Organization Details LastModified Time Tobacco Smoking Status Never Smoker except for one a year-2008, [facility] 04/05/2024 13:50:05 Do You Have An Advance Directive? Yes Information not available 07/01/2011 Do You Wear A Helmet When Biking? No Information not available 09/09/2015 What Is Your Level Of Caffeine Consumption? Moderate A Coffee In The Morning Information not available 06/25/2020 How Much Tobacco Do You Chew? None Information not available 07/28/2011 What Type Of Diet Are You Following? REGULAR Try Watch Carb/ Sugar Information not available 02/19/2021 Which Illicit Or Recreational Drugs Have You Used? None Denies [email or web address] Information not available 11/17/2016 Are There Any Guns Present In Your Home? Yes Information not available 07/01/2011 Do You Use Insect Repellent Routinely? Yes [email or web address] Information not available 12/15/2022 Live Alone Or With Others? With Others , Son . Daughter Osiris And Her Family Information not available 02/19/2021 CSRP - Narcotics No Informat ion not available 07/28/2011 CSRP Contract Signed And Discussed No Information not available 07/28/2011 Patient Has Health Care Proxy Signed And In Chart Yes [email or web address] Information not available 12/16/2022 DM Disease Process Needs Instruction Information not available 05/25/2012 Nutrition Needs Instruction Information not available 05/25/2012 Physical Activity Needs Instruction Information not available 05/25/2012 Medications Needs Instruction Information not available 05/25/2012 Monitoring Not Assessed Information not available 05/25/2012 Acute Complications Needs Instruction Information not available 05/25/2012 Chronic Complications Needs Instruction Information not available 05/25/2012 Coping Pre-needs Review Information not available 05/25/2012 Behavior Change Pre-needs Review Information not available 05/25/2012 DSME Plan Goal Being Active: Get Up And Walk Around [employer] 1-2x/day At Work Information not available 05/25/2012 DSME Plan Goal Success Initiated Information not available 05/25/2012 DSME Plan Goal Evaluation: 05/25/2012 Information not available 05/25/2012 DSME Plan Initiated: 05/25/2012 MNTx2-3; DM Basics Class; Also To See DEE Information not available 05/25/2012 DSME Plan Status In Progress - Infor mation not available 05/25/2012 CSRP - Stimulants No Information not available 09/09/2015 CSRP - Suboxone No Informati on not available 09/09/2015 Marital Status Arelis fay Meghan n not available 05/31/2012 Mosquito Repellent Used Routinely Yes Information not available 07/01/2011 What Was The Date Of Your Most Recent Tobacco Screening? 11/22/2024 [email or web address] Information not available 11/22/2024 How Many Children Do You Have? 4 3 Grandchild [email or web address] Information not available 04/21/2010 Do You Use Your Seat Belt Or Car Seat Routinely? Yes [email or web address] Information not available 12/15/2022 Seat Belts Used Routinely Yes Information not available 07/01/2011 Smoke Alarm In Home Yes Information not available 07/01/2011 Do You Have Smoke And Carbon Monoxide Detectors In Your Home? Yes [email or web address] Information not available 12/15/2022 Are You Passively Exposed To Smoke? No [email or web address] Information not available 12/15/2022 How Much Tobacco Do You Smoke? No Information not available 09/09/2015 General Stress Level Medium resilient ; Job Stress, Son Joaquin (mood Swings, Anger) Information not available 07/28/2011 Do You Use Sunscreen Routinely? Yes Information not available 07/01/2011 Sex: Male Functional Status Question Answer Note LastModified by Organizat ion Details LastModified Time Do you use any illicit or recreational drugs? No [email or web address] Information not available 08/13/2021 Do you or have you ever used any other forms of tobacco or nicotine? No Information not available 02/18/2022 What is your level of alcohol consumption? None rarely Information not available 08/12/2022 Do you or have you ever used smokeless tobacco? Never used smokeless tobacco [email or web address] Information not available 03/29/2019 What is your occupation? [email or web address] Information not available 07/01/2011 Do you or have you ever used e-cigarettes or vape? Never used electronic cigarettes [email or web address] Information not available 03/29/2019 Mental Status None recorded. Family History Relationship Description Onset Age of this Age Resolved Age Notes LastModified by Organization Details LastModified Time Mother Diabetes mellitus ? type 1 [email or web address] Not available 12/22/2015 11:06:41 Notes:mother Type 1 DM, d 60 [place]; father unknown; sister - spina bifida type problem; MGM cancer on face; MGF d 80 COPD - Up to 7 grandkids- all healthy. oldest is 6. 9-no changes 2017- Daughter has nodules. 2018- No changes. Granddaughter playing t-ball (6y.o.). Grands: 9,6,6,4,4,3,3- all healthy 2019- Family OK. 6 grandkids OK. (3 playing sports) 09/04: Family OK. couple grands doing better with remote school (10 y.o.). 08/04: Daughter going thru divorce. Other may be also. 03/05: Grands OK. 08/05: No changes. New grandson (06/05) total of 7. 2 daughters going through divorces. Medical History Condition Response Diabetes Type II Y Obesity Y Thyroid Disease Y Osteoarthritis Y Hypertension Y Sleep Apnea Y Immunizations Vaccine Type Date Status Note Provider Nam e and Address Organization Details Recorded Time Td(adult) unspecified formulation 1 completed Not Available [facility] 06/30/2011 05:20:34 Tdap 1 completed Not Available [facility] 09/01/2019 02:15:44 Influenza, split virus, trivalent, preservative 3 completed Not Available [facility] 09/01/2019 02:18:37 Influenza, split virus, quadrivalent, PF 6 completed Not Available [facility] 09/01/2019 02:31:08 pneumococcal polysaccharide PPV23 6 completed Not Available [facility] 09/01/2019 02:33:00 Influenza, split virus, quadrivalent, PF 7 completed Not Available [facility] 09/01/2019 02:22:00 Influenza, split virus, quadrivalent, PF 9 completed Not Available [facility] 09/01/2019 02:34:11 Td (adult), 2 Lf tetanus toxoid, preservative free, adsorbed 1 completed ANGÉLICA Villavicencio [address] [place] [address], [id number], [facility] 05/14/2021 09:16:45 Influenza, high-dose, quadrivalent, PF 1 completed ANGÉLICA Villavicencio [address] [place], [address], [facility] 05/14/2021 09:16:45 COVID-19, mRNA, LNP-S, bivalent, PF, 50 mcg/0.5 mL or 25mcg/0.25 mL dose 3 completed Allyn Gale, NATHALIE, BODY PIERCER-BC [address] [place] [address], [id number], [facility] 09/16/2022 08:49:19 COVID-19, mRNA, LNP-S, PF, 30 mcg/0.3 mL dose 1 [facility] 11/22/2024 09:32:28 COVID-19, mRNA, LNP-S, PF, 30 mcg/0.3 mL dose 1 completed [facility] 11/22/2024 09:32:28 Influenza, high-dose, quadrivalent, PF 3 completed Eden Brandon MA [facility] 05/19/2023 11:36:36 Influenza, high-dose, trivalent, PF 4 completed Citlaly Talley LPN [facility] 07/03/2024 10:59:54 COVID-19, mRNA, LNP-S, PF, 30 mcg/0.3 mL dose, scarlett-sucrose 2 completed Tova Rankin CH[facility] 11/22/2024 09:32:28 Past Encounters Encounter ID Performer Location Encounter Start Date Encounter Closed Date Diagnosis/Indication Diagnosis SNOMED-CT Code Diagnosis ICD10 Code Diagnosis Note [id number] Vaishnavi Malik [facility], [address] [place] [address] 10/27/2000 09:00:00 09/04/2008 02:02:29 [id number] Vaishnavi Malik [facility], [address] [place] [address] 11/11/2000 16:00:00 09/04/2008 02:02:29 [id number] Vaishnavi Malik [facility], [address] [place] [address] 11/14/2000 11:30:00 09/04/2008 02:02:29 [id number] Vaishnavi Malik [facility], [address] [place] [address] 11/21/2000 14:00:00 09/04/2008 02:02:29 [id number] [facility] , [facility] [address] [place] [address] 11/21/2000 14:30:00 09/04/2008 02:02:29 [id number] MD ELISABETH Bran, [facility], OFFICE [address] [place] [address] 07/06/2004 09:12:09 07/07/2004 08:38:49 [id number] Michael Cordova MD , [facility], [address] [place] [address] 07/13/2004 09:19:10 07/14/2004 10:32:23 [id number] MD ELISABETH Bran, [facility], [address] [place] [address] 07/23/2004 12:02:06 07/23/2004 17:29:12 [id number] Michael Cordova MD , [facility], [address] [place] [address] 09/03/2004 11:46:40 09/03/2004 16:56:22 [id number] Michael Cordova MD , [facility], OFFICE [address] [place] [address] 09/30/2004 08:33:52 09/30/2004 16:20:48 [id number] [facility] - [address] [address] 09/30/2004 08:57:33 09/30/2004 08:57:50 [id number] MD ELISABETH Bran, [facility], OFFICE [address] [place] [address] 01/29/2005 08:29:21 01/30/2005 12:03:31 [id number] MD ELISABETH Bran, [facility], [address]ICE [address] [place] [address] 07/13/2006 14:35:20 07/14/2006 09:47:55 [id number] [facility] - [address] [address] 07/13/2006 15:35:47 07/13/2006 15:35:59 [id number] MD ELISABETH Bran, [facility], OFFICE [address] [place] [address] 12/07/2006 10:45:41 12/08/2006 08:41:31 [id number] Corey Hays , PT Physical Therapy, [address] [place] [address] 12/19/2006 15:29:59 12/20/2006 09:17:57 [id number] Corey Hays , PT Physical Therapy, [address] [place] [address] 12/26/2006 15:00:05 12/27/2006 13:24:49 [id number] Corey Hays , PT Physical Therapy, [address] [place] [address] 12/30/2006 14:57:24 12/30/2006 17:19:45 [id number] Corey Hays , PT Physical Therapy, [address] [place] [address] 01/05/2007 12:28:27 01/06/2007 09:56:16 [id number] Corey Hays , PT Physical Therapy, [address] [place] [address] 01/16/2007 14:57:42 01/19/2007 09:28:17 [id number] Corey Hays , PT Physical Therapy, [address] [place] [address] 01/20/2007 14:57:43 01/20/2007 15:38:51 [id number] Corey Hays PT Physical Therapy, [address] [place] [address] 02/10/2007 15:02:16 02/13/2007 08:39:02 [id number] Corey Hays , PT Physical Therapy, [address] [address] 02/20/2007 15:01:52 02/21/2007 12:17:00 [id number] Corey Hays PT Physical Therapy, [address] [address] 03/03/2007 15:29:11 03/03/2007 16:09:28 [id number] Corey Hays PT Physical Therapy, [address] [place] [address] 03/15/2007 15:01:48 03/16/2007 10:41:36 [id number] MD ELISABETH Bran, [facility], OFFICE [address] [place] [address] 01/10/2008 11:33:06 09/04/2008 02:02:29 [id number] [facility] - [facility] [address] [place] [address] 01/10/2008 13:00:22 01/10/2008 13:00:29 [id number] Michael Cordova MD , [facility], OFFICE [address] [place] [address] 01/15/2008 08:36:08 09/04/2008 02:02:29 [id number] Michael Cordova MD , [facility], [address]ICE [address] [place] [address] 01/23/2008 08:33:47 09/04/2008 02:02:29 [id number] Michael Cordova MD , [facility], OFFICE [address] [place] [address] 01/30/2008 08:21:09 09/04/2008 02:02:29 [id number] [facility] - [address] [address] 01/30/2008 08:47:55 01/30/2008 08:48:03 [id number] Michael Cordova MD , [facility], [address]ICE [address] [place] [address] 02/05/2008 16:34:39 09/04/2008 02:02:29 [id number] Michael Cordova MD , [facility], OFFICE [address] [place] [address] 02/11/2009 09:43:32 02/17/2009 09:31:03 [id number] [facility] - [facility] [address] [place] [address] 02/11/2009 10:21:11 02/11/2009 10:21:18 [id number] Harriet Hernandez NP , [facility], OFFICE [address] [place] [address] 04/21/2010 07:33:13 04/21/2010 14:54:35 [id number] Michael Cordova MD , [facility], [address]ICE [address] [place] [address] 05/19/2010 14:14:06 06/11/2010 09:53:41 [id number] Michael Cordova MD , [facility], [address] [place] [address] 07/28/2011 15:11:09 07/29/2011 15:53:47 [id number] Michael Cordova MD , [facility], [address]ICE [address] [place] [address] 04/24/2012 11:25:56 04/24/2012 12:52:32 [id number] Candelaria High, Ms, Rdn, Ldn, CDE Nutrition -[address] [address] 05/25/2012 09:27:31 05/25/2012 10:30:46 [id number] Nora Shelton [employer] [facility] [address] [address] 05/31/2012 10:39:02 05/31/2012 12:45:16 [id number] YOSELYN Feldman, [facility], [address]ICE [address] [place] [address] 06/05/2012 09:37:42 06/06/2012 16:00:36 [id number] ISSA Mercedes, [facility], [address]ICE [address] [place] [address] 06/29/2012 09:45:34 06/29/2012 10:57:27 [id number] Nora Shelton NP [facility] [address] [address] 08/30/2012 11:15:05 08/30/2012 12:25:36 [id number] MD ELISABETH Bran, [facility], OFFICE [address] [place] [address] 10/24/2012 08:47:14 10/24/2012 09:43:20 [id number] MD ELISABETH Cates, [facility], [address]ICE [address] [place] [address] 11/06/2012 17:34:11 11/07/2012 09:26:19 [id number] MD ELISABETH Cates, [facility], [address]ICE [address] [place] [address] 11/08/2012 17:21:33 11/09/2012 09:00:45 [id number] Tremaine Rodriguez MD Radiology , [address] [address] 11/20/2012 08:57:54 11/21/2012 14:15:18 [id number] Tremaine Rodriguez MD Endocrino logy, [address] [address] 12/13/2012 14:20:13 12/14/2012 08:37:24 [id number] Tremaine Rodriguez MD Endocrino logy, [address] [address] 01/24/2013 12:32:44 01/24/2013 15:48:55 [id number] Manjeet Jade MD , [facility], [address]ICE [address] [place] [address] 01/29/2013 08:02:52 01/29/2013 08:52:58 [id number] Tremaine Rodriguez MD Endocrino logy, [address] [address] 01/30/2013 13:11:02 01/31/2013 09:00:00 [id number] Tremaine Rodriguez MD Endocrino logy, [address] [address] 04/12/2014 10:37:02 04/12/2014 12:55:01 Peripheral angiopathy due to diabetes mellitus [id number] a1c has actually been at goal on only metformin 500 daily. Checks intermitte ntly but AM values consistent ly under 125 (per pt). Encourage him to check post-meals . Had been up to over 45 lbs. and lost nearly 100# but then regained 25-30 (by his account) when had foot ulcer. Foot ulcer has healed nicely and he had good perfusion. Brawny changes suggest he has some venous insufficie ncy and no problem with monofilame nt. Encourage local care with daily lotion. Discussed reason to be on statins. Will check lipids for baseline but likely will suggest he go on low dose pravastati n Non-toxic multinodular goiter [id number] Reviewed preliminar y results of today's u/s. appears to be small change in one nodule. will need to review images and await final report. Thyroid fu nction tests abnormal [id number] No recent labs. In past, has had TSH values of 0.68 ()- other values were 0.25, 0.19 and 0.62. Scan raised question of hot nodule in isthmus. If his tsh was lower, would be concerned about risk for a.fib (obesity makes osteoporos is a bit less likely but still possible) but he has no other manifestat ions of thyrotoxic osis. Update TFTs - encourage him to get routine labs. Obstructiv e sleep apnea syndrome [id number] Using CPAP every night. [id number] Tremaine Rodriguez MD Endocrino logy, [address] [address] 06/18/2015 11:06:37 06/18/2015 12:47:08 Peripheral angiopathy due to diabetes mellitus [id number] E11.51 Elevated blood sugars on metformin. No recent labs. a1c has actually been at goal in past on only metformin 500 daily. Checks intermitte ntly but AM values and seems average is increasing (per pt). Encourage him to check sugars post-meals . Had been up to over 450 lbs. - has gained 20# with decrease in activity. His goal is to lose 10# per month for next 4 months (prior to PCP visit) Foot ulcer has healed nicely and he had good perfusion. Brawny changes suggest he has some venous insufficie ncy and no problem with monofilame nt. Encourage local care with daily lotion. Discussed reason to be on statins. Will check lipids for baseline but likely will suggest he go on low dose pravastati n Non-toxic multinodular goiter 81626963 E04.2 Multiple nodules documented on past u/s. Reviewed preliminar y results of today's u/s. No changes on preliminar y evaluation . Benign bx in 2013 but had isthmus nodule with increased uptake on previous scan. Need to follow TFTs to make sure no thyrotoxic osis. Thyroid fu nction tests abnormal 628531762 R94.6 No recent labs. Ordered but not done. He will get them done next week. In past, has had TSH values of 0.68 ()- other values were 0.25, 0.19 and 0.62. Scan raised question of hot nodule in isthmus. If his tsh was lower, would be concerned about risk for a.fib (obesity makes osteoporos is a bit less likely but still possible) but he has no other manifestat ions of thyrotoxic osis. Update TFTs - encourage him to get routine labs. Obstructiv e sleep apnea syndrome 77090756 G47.33 Using CPAP every night. [id number] Michael Britton, OD [facility], [facility] [address] [place] [address] 09/04/2015 13:52:17 09/04/2015 15:08:29 Diabetes mellitus 73586489 E11.9 No retinopath y at this time or other ocular manifestat ions of diabetes Astigmatism 48628041 H52 .229 Presbyopia 46207980 H52. 4 [id number] Michael Cordova MD , [facility], [address]ICE [address] [place] [address] 09/09/2015 16:19:12 09/09/2015 17:22:49 Benign essential hypertension 0383514 I10 Blood pressure at goal continue to work on diet, exercise, and lowering salt intake as discussed Mixed hyperlipidemia 267 583517 E78.2 continue to work on diet and exercise as discussed Active or passive immunization 265328619 Z23 Administra tion of pneumococcal vaccine 81392702 Z23 Diabetes mellitus 939514 09 E11.9 Generalize d osteoarthritis 701686823 M15.9 Morbid obesity 223723981 E66.01 [id number] Tremaine Rodriguez MD Endocrino logy, [address] [address] 12/17/2015 09:46:51 12/17/2015 11:16:36 Non-toxic multinodular goiter 52141066 E04.2 Multiple nodules documented on past u/s. Reviewed preliminar y results of today's u/s. No changes on preliminar y evaluation . Benign bx in 2012 but had isthmus nodule with increased uptake on previous scan. Need to follow TFTs to make sure no thyrotoxic osis. Thyroid fu nction tests abnormal 279281872 R94.6 No recent labs. Ordered but not done. He will get them done next week. In past, has had TSH values of 0.68 (.)- other values were 0.25, 0.19 and 0.62. Scan raised question of hot nodule in isthmus. If his tsh was lower, would be concerned about risk for a.fib (obesity makes osteoporos is a bit less likely but still possible) but he has no other manifestat ions of thyrotoxic osis. Update TFTs - encourage him to get routine labs. Peripheral angiopathy due to diabetes mellitus 065063182 E11.51 Elevated blood sugars on metformin. A1c is up to 8.6%. Discussed options- increase metformin vs. use of incretins (which would help weight). Ask patient to check with insurance about cost of incretin options. Reports checking past few weeks but no values seen on meter download. Weight just under 400#. Had been up to over 450 lbs. Left foot ulcer has healed nicely and he had good perfusion. Brawny changes suggest he has some chronic venous insufficie ncy; no problem with monofilame nt. Encourage local care with daily lotion. Discussed reason to be on statins. Will check lipids for baseline but likely will suggest he go on low dose pravastati n Obstructiv e sleep apnea syndrome 40155696 G47.33 Using CPAP every night. Dizziness 891250856 R42 Symptomati c dizziness happened while driving. Only on metformin 500 so risk for hypo is very low. Could be TIA (had slurred speech) but also could be [place]. Check EKG today. encourage f/u with PCP. [id number] Michael Cordova MD , [facility], [address]ICE [address] [place] [address] 01/01/2016 10:41:46 01/01/2016 11:56:33 Benign essential hypertension 6428685 I10 Blood pressure at goal Syncope 379891229 R55 [id number] Michael Cordova MD , [facility], [address] [place] [address] 01/05/2016 09:49:59 01/05/2016 09:54:34 Syncope 986226797 R55 [id number] Michael Cordova MD , [facility], [address] [place] [address] 04/01/2016 14:54:39 04/01/2016 16:13:40 Adult health examination 534298358 Z00.00 see Risk Assessment and Lifestyle Change Counseling section above Counseling 554888008 Z71 .9 Benign ess ential hypertension 7058168 I10 Blood pressure at goal Blood pressure NOT at goal. 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 now 7.6% vs 8.6%.Next option would be to add ALVAREZ or consider incretins (which would help weight). Thinks Trulicity was an option.Ian joseph teach him use and one pen at 0.75. Try Rx too. Weight just under 400#. Had been up to over 450 lbs.Hx of left foot ulcer - has brawny changes indicating chronic venous insufficie ncy; monofilame nt abnormal on left but he has hx of spinal stenosis which is likely contributi ng. Encourage local care with daily lotion.Rev iewed reason to be on statins. Even with LDL under 100, think it would be of benefit. Try simvastati n 20 Non-toxic multinodular goiter 31703408 E04.2 Multiple nodules documented on past u/s. No major change with last u/s in 06/2015.f/ u at next visit (early 2016) with u/s on same day. Benign bx in 2012 but had isthmus nodule with increased uptake on previous scan. Need to follow TFTs to make sure no thyrotoxic osis. TSH has been low but not under 0.1 Thyroid fu nction tests abnormal 737061333 R94.6 TSH low but not under 0.1 (threshold for recommenda tion of treating subclinica l disease). In past, has had TSH values of 0.68 ()- other values were 0.25, 0.19 and 0.62. Scan raised question of hot nodule in isthmus. If his TSH was lower, would be concerned about risk for a.fib (obesity makes osteoporos is a bit less likely but still possible) but he has no other manifestat ions of thyrotoxic osis. Follow TFTs - encourage him to get routine labs. Obstructiv e sleep apnea syndrome 07065628 G47.33 Using CPAP every night. [id number] Tremaine Rodriguez MD Endocrino logy, [address] [address] 11/17/2016 08:45:08 11/17/2016 10:05:52 Peripheral angiopathy due to diabetes mellitus 791248563 E11.51 A1c better on metformin. holding at 7.6% - had been 8.6%.Stres s recently with worse habits.Wan ts to get back on track. Knows weight is a major problem . Had good response to Trulicity but too expensive. Tanzeum gave diarrhea. Byetta is covered.Tr y coupon for Trulicity. Rx for trulicity to see how much it costs Weight under 400#. Had been up to over 450 lbs. Hx of left foot ulcer - has brawny changes indicating chronic venous insufficie ncy; monofilame nt abnormal on left but he has hx of spinal stenosis which is likely contributi ng. Encourage local care with daily lotion.Rev iewed reason to be on statins. Even with LDL under 100, think it would be of benefit. Try simvastati n 20 Non-toxic multinodular goiter 77216124 E04.2 Multiple nodules documented on past u/s.No major change with last u/s in 06/2015. Benign bx in 2012 but had isthmus nodule with increased uptake on previous scan. Need to follow TFTs to make sure no thyrotoxic osis. TSH has been low but not under 0.1 F/U yearly with u/s Thyroid fu nction tests abnormal 822111037 R94.6 TSH low but not under 0.1 (threshold for recommenda tion of treating subclinica l disease). In past, has had TSH values of 0.4 (2015)- was 0.68 ()- other values were 0.25, 0.19 and 0.62. Scan raised question of hot nodule in isthmus. If his TSH was lower, would be concerned about risk for a.fib (obesity makes osteoporos is a bit less likely but still possible) but he has no other manifestat ions of thyrotoxic osis. Follow TFTs - encourage him to get routine labs. Obstructiv e sleep apnea syndrome 93666585 G47.33 Using CPAP every night. [id number] Tremaine Rodriguez MD Endocrino logy, [address] [address] 04/21/2017 13:52:13 04/21/2017 15:15:52 Non-toxic multinodular goiter 86535704 E04.2 Multiple nodules documented on past u/s.10/2016 :Right = 1.4 x 1.7 x 1.1 cm;Right #2= 1.1 x 1.1 x 0.8 cmRight #3= 1.6 x 2.3 x 1.3 cm.Left #1= 4.0 x 4.3 x 2.8 cm; No major change with last u/s in 06/2015. Benign bx in 2012 but had isthmus nodule with increased uptake on previous scan. Need to follow TFTs to make sure no thyrotoxic osis. TSH has been low but not under 0.1 F/U yearly with u/s Active or passive immunization [id number] Z23 04/2017 Peripheral angiopathy due to diabetes mellitus 273408609 E11.51 A1c better on metformin with Rabiaetta . Down to 7.1% (05/01)- was at 7.6% - had been 8.6%. Doing better with diet. Weight improving- Had been up to over 450 lbs. Had good response to Trulicity but too expensive. Tanzeum gave diarrhea. Hx of left foot ulcer - has brawny changes indicating chronic venous insufficie ncy; monofilame nt abnormal on left but he has hx of spinal stenosis which is likely contributi ng. Encourage local care with daily lotion.Rev iewed reason to be on statins. Even with LDL under 100, think it would be of benefit. Try simvastati n 20 Thyroid fu nction tests abnormal 130118422 R94.6 TSH low but not under 0.1 (threshold for recommenda tion of treating subclinica l disease). In past, has had TSH values of 0.4 (2015)- was 0.68 (.)- other values were 0.25, 0.19 and 0.62. Scan raised question of hot nodule in isthmus. If his TSH was lower, would be concerned about risk for a.fib (obesity makes osteoporos is a bit less likely but still possible) but he has no other manifestat ions of thyrotoxic osis. Follow TFTs - encourage him to get routine labs. Obstructiv e sleep apnea syndrome 19522466 G47.33 Using CPAP every night. [id number] Tremaine Rodriguez MD Endocrino logy, [address] [address] 12/21/2017 13:53:04 12/21/2017 16:14:50 Non-toxic multinodular goiter 79061668 E04.2 Multiple nodules documented on past u/s. Last u/s was 10/2016:Rig ht #1 = 1.4 x 1.7 x 1.1 cmRight #2 = 1.1 x 1.1 x 0.8 cmRight #3 = 1.6 x 2.3 x 1.3 cmLeft #1= 4.0 x 4.3 x 2.8 cm No major change with last u/s in 06/2015. Benign bx in 2012 but had isthmus nodule with increased uptake on previous scan. Need to follow TFTs to make sure no thyrotoxic osis. TSH has been low but not under 0.1 Update u/s Peripheral angiopathy due to diabetes mellitus 724245662 E11.51 A1c had been better on metformin with Jessica. No recent labs- had gone down to 7.1% (05/01)- was at 7.6% - had been 8.6%. Update labs. Had done better with diet. But increase work load making lifestyle changes harder. (had been up to over 450 lbs). Had good response to Trulicity but too expensive. Tanzeum gave diarrhea. Hx of left foot ulcer - has brawny changes indicating chronic venous insufficie ncy; monofilame nt abnormal on left but he has hx of spinal stenosis which is likely contributi ng. Encourage local care with daily lotion.Not using lotion regularly. Has been on simvastati n 20.Update profile Thyroid fu nction tests abnormal 757906998 R94.6 TSH low (0.19) but not under 0.1 (threshold for recommenda tion of treating subclinica l disease). In past, has had TSH values of 0.4 (2015)- was 0.68 (./2012)- other values were 0.25, 0.19 and 0.62. Scan raised question of hot nodule in isthmus. If his TSH was lower, would be concerned about risk for a.fib (obesity makes osteoporos is a bit less likely but still possible) but he has no other manifestat ions of thyrotoxic osis. Follow TFTs - encourage him to get routine labs. Obstructiv e sleep apnea syndrome 40817407 G47.33 Using CPAP every night. [id number] Michael Cordova MD , [facility], [address] [place] [address] 02/09/2018 10:51:54 02/09/2018 12:10:18 Benign essential hypertension 4050249 I10 Blood pressure at goal Mixed hyperlipidemia 267 149059 E78.2 continue to work on diet and exercise as discussed Uncontrol ed type 2 diabetes mellitus 096608960 E11.65 Morbid obesity 566074591 E66.01 Non-toxic multinodular goiter 16218498 E04.2 Disorder o f nervous system due to type 2 diabetes mellitus 062902472 E11.49 [id number] Tremaine Rodriguez MD Endocrino logy, [address] [address] 09/28/2018 08:35:15 09/29/2018 07:12:27 Peripheral angiopathy due to diabetes mellitus 412461730 E11.51 A1c had been better on metformin with GLP-1. Trulicity had done pretty well.A1c slightly up but probably increasing off trulicity. Re-start Trulicity at 0.75 and hope to increase to 1.5 with prior auth. Tanzeum gave diarrhea. A1c up to 7.6 from 7.50 had been 7.1% (05/01)- was at 7.6% - had been 8.6%. Ongoing problems with load (and long commute) making lifestyle changes even harder.Vilma es limiting him from exercising but can't fix knees until loses weight. Hx of left foot ulcer - has brawny changes indicating chronic venous insufficie ncy; monofilame nt abnormal on left but he has hx of spinal stenosis which is likely contributi ng. Encourage local care with daily lotion.Not using lotion regularly. Has been on simvastati n 20.Follow labs and adjust prn. Non-toxic multinodular goiter 48000257 E04.2 Multiple nodules documented on past u/s. Last u/s was 10/03Right mid: 1.7 x 2.0 x 1.4 cm. (larger) ; was 1.4 x 1.7 x 1.1 cm (10/29)Righ t mid (lat)= 1.1x1.1x 0.75; was 1.1 x 1.1 x 0.8 cmRight lower= 1.6x2.3x1. 3cm ; was 1.6 x 2.3 x 1.3 cmIsthmus: 2.1x1.8x1. 2; Left mid-lobe: 4.0x4.3x2. 8; was 4.0 x 4.3 x 2.8 cm Benign bx in 2012 but had isthmus nodule with increased uptake on previous scan. Evidence of subcliniic al hyperthyro id- need to follow TFTs to make sure no transition overt thyrotoxic osis. TSH has been low but not under 0.1 Biopsy recommende d to patient for right upper nodule. Discussed s/e which include but are not limited to bleeding, infection, tenderness , bruising. Procedure was explained and handout given to patient regarding procedure as well. Possible outcomes of biopsy (and correspond ing treatments )were briefly outlined to the patient including benign vs abnormal (surgery required) vs atypical (discuss further with patient and pathologis t) vs acellular (biopsy could be repeated). All questions were answered and patinet wishes to proceed. Pt was told he/she would be called by staff to schedule at the next avaialble opening and we would see him/her within 10 days post biopsy to discuss the results. Thyroid fu nction tests abnormal 875359164 R94.6 TSH low (0.24 (09/02); was 0.19 but not under 0.1 (threshold for recommenda tion of treating subclinica l disease). In past, has had TSH values of 0.4 (2016)- was 0.68 (6./2012)- other values were 0.25, 0.19 and 0.62. Scan raised question of hot nodule in isthmus. If his TSH was lower, would be concerned about risk for a.fib (obesity makes osteoporos is a bit less likely but still possible) but he has no other manifestat ions of thyrotoxic osis. Follow TFTs - encourage him to get routine labs. Obstructiv e sleep apnea syndrome 75536419 G47.33 Using CPAP every night. Neuropathy due to diabetes mellitus 801658088 E11.40 Asymmetry suggests his neuropathy is not purely diabetic- has hx of spinal stenosis.B ut consequenc es the same- has hx of left foot ulcer. At high risk for repeat ulceration .Reviewed importance of lotion to feet- maybe try lotion with benadryl to help decrease itching (and scratching ) Morbid obesity 209973685 E66.01 Impacts diabetes, knees, peripheral vascular disease and CV risk.Discu ssed (again) option of surgery since it would take a long time to lose weight medically (even if becomes very adherent to diet and exercise [which is hard given knees]). [id number] Michael Cordova MD , [facility], [address] [place] [address] 09/28/2018 14:36:17 09/29/2018 13:08:16 Adult health examination 734181485 Z00.00 see Risk Assessment and Lifestyle Change Counseling section above Counseling 690539165 Z71 .9 Depression screening 171 272177 Z13.89 depression screening tool administer ed, entered into emr, scored and discussed, time greater than 7.5 minutes Benign ess ential hypertension 3409743 I10 Blood pressure at goal Spinal brennen nosis of lumbar region 64179835 M48.061 Generalize d osteoarthritis 834469475 M15.9 Morbid obesity 962496525 E66.01 Non-toxic multinodular goiter 08741824 E04.2 Disorder o f nervous system due to type 2 diabetes mellitus 502715236 E11.49 Uncontroll ed type 2 diabetes mellitus 500076326 E11.65 Polyneurop athy due to diabetes mellitus 52430367 E11.42 Essential hypertension 14750015 I10 [id number] Michael Britton, OD [facility], [facility] [address] [place] [address] 10/20/2018 08:00:18 10/20/2018 08:56:14 Type 2 diabetes mellitus without complication 130786979 E11.9 No retinopath y or other ocular manifestat ions of diabetes Hypertensi ve retinopathy 3477394 H35.033 mild tortuosity of vessels Presbyopia 34165070 H52. 4 [id number] Tremaine Rodriguez MD Endocrino logy, [facility] [address] [place] [address] 11/23/2018 12:53:11 11/23/2018 13:51:54 Non-toxic multinodular goiter 43883085 E04.2 12/01: Biopsy of right nodule Multiple nodules documented on past u/s. Last u/s was 10/03Right mid: 1.7 x 2.0 x 1.4 cm. (larger) ; was 1.4 x 1.7 x 1.1 cm (10/29)Righ t mid (lat)= 1.1x1.1x 0.75; was 1.1 x 1.1 x 0.8 cmRight lower= 1.6x2.3x1. 3cm ; was 1.6 x 2.3 x 1.3 cmIsthmus: 2.1x1.8x1. 2; Left mid-lobe: 4.0x4.3x2. 8; was 4.0 x 4.3 x 2.8 cm Benign bx in 2012 but had isthmus nodule with increased uptake on previous scan. Evidence of subcliniic al hyperthyro id- need to follow TFTs to make sure no transition overt thyrotoxic osis. TSH has been low but not under 0.1 Biopsy recommende d to patient for right upper nodule. Discussed s/e which include but are not limited to bleeding, infection, tenderness , bruising. Procedure was explained and handout given to patient regarding procedure as well. Possible outcomes of biopsy (and correspond ing treatments )were briefly outlined to the patient including benign vs abnormal (surgery required) vs atypical (discuss further with patient and pathologis t) vs acellular (biopsy could be repeated). All questions were answered and patinet wishes to proceed. Pt was told he/she would be called by staff to schedule at the next avaialble opening and we would see him/her within 10 days post biopsy to discuss the results. [id number] Tremaine Rodriguez MD Endocrino [facility] [address] 11/30/2018 14:41:48 12/11/2018 07:21:46 Non-toxic multinodular goiter 08016436 E04.2 12/01: Biopsy of right noduleBeni gn cytology. Discussed concepts with patient of benign vs. malignant and potential issues of growth in neck causing sx (pressure on trachea, esophagus, carotid or jugular) which might ultimately be treated with surgery. For now, can follow with ultrasound yearly to see if any significan t change in this nodule or other smaller nodule(s) which may be present. Multiple nodules documented on past u/s. Last u/s was 10/03Right mid: 1.7 x 2.0 x 1.4 cm. (larger) ; was 1.4 x 1.7 x 1.1 cm (10/29)Righ t mid (lat)= 1.1x1.1x 0.75; was 1.1 x 1.1 x 0.8 cmRight lower= 1.6x2.3x1. 3cm ; was 1.6 x 2.3 x 1.3 cmIsthmus: 2.1x1.8x1. 2; Left mid-lobe: 4.0x4.3x2. 8; was 4.0 x 4.3 x 2.8 cm Benign bx in 2012 of right, left and isthmus.Is thmus nodule with increased uptake on previous scan. Subclinica l hyperthyroidism 520131515 E05.90 Evidence of subclinica l hyperthyro id- need to follow TFTs to make sure no transition overt thyrotoxic osis. TSH has been low but not under 0.1 Likely from sthmus nodule showing increased uptake on previous scan. Encourage TFTs q 3 months. [id number] Tremaine Rodriguez MD Endocrino lognguyễn, [facility] [address] [place] [address] 03/29/2019 09:29:59 04/02/2019 06:20:28 Non-toxic multinodular goiter 19520815 E04.2 12/01: Biopsy of right mid noduleBeni gn cytology. Discussed concepts with patient of benign vs. malignant and potential issues of growth in neck causing sx (pressure on trachea, esophagus, carotid or jugular) which might ultimately be treated with surgery. For now, can follow with ultrasound yearly to see if any significan t change in this nodule or other smaller nodule(s) which may be present. Multiple nodules documented on past u/s. Last u/s was 10/03Right mid: 1.7 x 2.0 x 1.4 cm. (larger; benign bx 12/01) ; was 1.4 x 1.7 x 1.1 cm (10/29)Righ t mid (lat)= 1.1x1.1x 0.75; was 1.1 x 1.1 x 0.8 cmRight lower= 1.6x2.3x1. 3cm ; was 1.6 x 2.3 x 1.3 cmIsthmus: 2.1x1.8x1. 2; Left mid-lobe: 4.0x4.3x2. 8; was 4.0 x 4.3 x 2.8 cm Benign bx in 2012 of right, left and isthmus.Is thmus nodule with increased uptake on previous scan. Benign ess ential hypertension 3124250 I10 doing well- BP at goal . HCTZ and lisinopril Peripheral angiopathy due to diabetes mellitus 112463869 E11.51 A1c had been better on metformin with GLP-1. Trulicity (0.75) has worked well.A1c much better (04/02) now that working less and moving more. A1c at 7.1 (04/02); was 7.6 from 7.50 had been 7.1% (05/01)- was at 7.6% - had been 8.6%. 04/02: Really doing better with lifestyle, now that working less. May be able to increase trulicity. Hx of left foot ulcer - has brawny changes indicating chronic venous insufficie ncy; monofilame nt abnormal on left but he has hx of spinal stenosis which is likely contributi ng. Encourage local care with daily lotion.Not using lotion regularly. Has been on simvastati n 20.Follow labs and adjust prn. Neuropathy due to diabetes mellitus 660664291 E11.40 Asymmetry suggests his neuropathy is not purely diabetic- has hx of spinal stenosis.B ut consequenc es the same- has hx of left foot ulcer. At high risk for repeat ulceration .Reviewed importance of lotion to feet- maybe try lotion with benadryl to help decrease itching (and scratching ) Thyroid fu nction tests abnormal 985245023 R94.6 TSH low (0.24 (09/02); was 0.19 but not under 0.1 (threshold for recommenda tion of treating subclinica l disease). In past, has had TSH values of 0.4 (2015)- was 0.68 (.)- other values were 0.25, 0.19 and 0.62. Scan raised question of hot nodule in isthmus. If his TSH was lower, would be concerned about risk for a.fib (obesity makes osteoporos is a bit less likely but still possible) but he has no other manifestat ions of thyrotoxic osis. Follow TFTs - encourage him to get routine labs. Obstructiv e sleep apnea syndrome 65898634 G47.33 Using CPAP every night. Morbid obesity 523352276 E66.01 Impacts diabetes, knees, peripheral vascular disease and CV risk.Discu ssed (again) option of surgery since it would take a long time to lose weight medically (even if becomes very adherent to diet and exercise [which is hard given knees]). [id number] Michael Cordova MD , [facility], [address] [place] [address] 03/29/2019 13:48:35 03/29/2019 15:06:50 Benign essential hypertension 0117331 I10 Peripheral angiopathy due to diabetes mellitus 982403368 E11.51 Morbid obesity 036620732 E66.01 Disorder o f nervous system due to type 2 diabetes mellitus 107042581 E11.49 Uncontroll ed type 2 diabetes mellitus 003835414 E11.65 [id number] Michael Cordova MD , [facility], [address] [place] [address] 06/07/2019 11:52:16 06/07/2019 14:12:48 Active or passive immunization 391512530 Z23 Pain of left calf 050038 6570 832996 M79.595 [id number] Michael Cordova MD , [facility], [address] [place] [address] 06/11/2019 14:58:53 06/11/2019 17:22:19 Cellulitis of lower limb 425364505 L03.119 Stasis marvin matitis of lower limb due to chronic peripheral venous hypertension 719647835 I87.295 [id number] Kev Heaton MD [facility], [address] [place] [address] 04/14/2020 13:28:41 04/15/2020 12:32:23 Obstructive sleep apnea syndrome 62823050 G47.33 Well managed with CPAP machine. Screening for malignant neoplasm of colon 197439866 Z12.11 Uncontroll ed type 2 diabetes mellitus 287318628 E11.[address] Rodriguez. Takes Metformin ER 500 mg 2 tablets BID. Ran out of Trulicity, has not taken in 2 weeks - need labs work before pharmacy will fill rx. Fasting 160-185, Non-fastin g 130s. Denies change in vision or frequent urination. Last eye exam 09/2018, due now. Last dental exam. Working to increase whole grains. Less processed foods. Exercise is difficult d/t knee pain. Lab work to be done ROBERT to patient can restart Trulicity. Patient case to Dr. Rodriguez to schedule f/u visit with patient.F/ u pending lab work and upcoming wellness exam. Subdural i ntracranial hematoma 04172545 S06.5X0A 10/2019. Patient does not recall who managed treatment - will send notes. Benign ess ential hypertension 0679155 I10 Not checking at home. Taking Lisinopril 12.5 mg 1 tablet daily and Lisinopril 20 mg 1 tablet daily. Denies chest/arm pain on exertion, SOB, or palpitatio ns. BP clinic in next 1-2 weeks, f/u pending result and upcoming wellness exam. Generalize d osteoarthritis 615148552 M15.9 Bilateral knee pain, osteoarthr itis Has tried PT. Was in care with [facility]. Not wanting to undergo surgery. F/u at [facility]. [id number] Tremaine Rodriguez MD Endocrino logy, [address] [address] 05/08/2020 08:23:01 05/13/2020 07:24:44 Uncontrolled type 2 diabetes mellitus 981482750 E11.65 05/04: Big increase in a1c.Doing OK on Trulicity 0.75 Suggest increase to 1.5.Contin ue metformin Will need f/u nurse visit.If high in AM, may want to add glipizide or possibly SGLT2i. Non-toxic multinodular goiter 00084801 E04.2 12/01: Biopsy of right mid noduleBeni gn cytology.O lder benign biopsies of right/isth mus/left in 2012 Discussed concepts with patient of benign vs. malignant and potential issues of growth in neck causing sx (pressure on trachea, esophagus, carotid or jugular) which might ultimately be treated with surgery. For now, can follow with ultrasound yearly to see if any significan t change in this nodule or other smaller nodule(s) which may be present. Real concern is for biopsies that have not been biopsied. Multiple nodules documented on past u/s. THYROID: MNG: Right mid: 1.7 x 2.0 x 1.4 cm. (2019; larger); 1.4 x 1.7 x 1.1 cm (2016); 1.3 x 1.6 x 1.1 cm (2014); 1.3 x 1.6 x 1.0 cm (2013) Right mid (lat)= 1.1x1.1x 0.75 (2018); 1.1 x 1.1 x 0.8 cm (2016) 1.1 x 1.2 x 0.8 cm (2014); 1.1 x 1.2 x 0.8 cm. (2013); Right lower*= 1.6x2.3x1. 3cm (2019*); 1.6 x 2.3 x 1.3 cm (2016); 1.6 x 2.3 x 1.3 cm. (2014); 1.4 x 2.2 x 1.3 cm. (2013); Isthmus*: 2.1x1.8x1. 2; (2019); 2.1 x 1.8 x 1.2 cm. (2016); 2.2 x 2.3 x 1.6 cm. (2014); 2.2 x 2.4 x 1.5 cm (2013) Left mid-lobe*: 4.0x4.3x2. 8 (2018); 4.0 x 4.3 x 2.8 cm (2016); 4.0 x 4.4 x 3.1 cm (2014) *Benign biopsy (Right 2018 and Right/Isth mus/Left 2012) Benign bx in 2012 of right, left and isthmus. Isthmus nodule with increased uptake on previous scan. TSH= 0.32; (04/02); was 0.24 (12/01 and 09/02); was 0.13 (04/01 and 01/30); was 0.19 (05/01); was 0.2 (10/29) Peripheral angiopathy due to diabetes mellitus 489074213 E11.51 A1c up to 8.9 (05/04) with no value since 04/02 of 7.1.Had been better on metformin with GLP-1. Trulicity (0.75) has worked well.A1c at 7.1 (04/02); was 7.6 from 7.50 had been 7.1% (05/01)- was at 7.6% - had been 8.6%. 04/02: Was doing better with lifestyle, (working less).05/04 : Knows he got lazy- working on getting better (bike up to LR from basement) 05/04 No breakdown of skin in feet ( checks).Hx of left foot ulcer - has brawny changes indicating chronic venous insufficie ncy; monofilame nt abnormal on left but he has hx of spinal stenosis which is likely contributi ng. Encourage local care with daily lotion.Not using lotion regularly. Has been on simvastati n 20.Follow labs and adjust prn. Neuropathy due to diabetes mellitus 260370352 E11.40 Asymmetry suggests his neuropathy is not purely diabetic- has hx of spinal stenosis.B ut consequenc es the same- has hx of left foot ulcer. At high risk for repeat ulceration .Reviewed importance of lotion to feet- maybe try lotion with benadryl to help decrease itching (and scratching ) Thyroid fu nction tests abnormal 535742574 R94.6 TSH at LLN consistent l but has not been under 0.1 (threshold for recommenda tion of treating subclinica l disease). TSH= 0.32; (04/02); was 0.24 (12/01 and 09/02); was 0.13 (04/01 and 01/30); was 0.19 (05/01); was 0.2 (10/29) In past, has had TSH values of 0.4 (2015)- was 0.68 ()- other values were 0.25, 0.19 and 0.62. Scan raised question of hot nodule in isthmus. If his TSH was lower, would be concerned about risk for a.fib (obesity makes osteoporos is a bit less likely but still possible) but he has no other manifestat ions of thyrotoxic osis. Follow TFTs - encourage him to get routine labs. Benign ess ential hypertension 3892333 I10 doing well- BP at goal . HCTZ and lisinopril Obstructiv e sleep apnea syndrome 26882014 G47.33 Using CPAP every night. Morbid obesity 539387721 E66.01 Impacts diabetes, knees, peripheral vascular disease and CV risk.Discu ssed (again) option of surgery since it would take a long time to lose weight medically (even if becomes very adherent to diet and exercise [which is hard given knees]). [id number] Tremaine Rodriguez MD Endocrino logy, [address] [address] 09/11/2020 07:52:01 09/11/2020 16:00:36 Uncontrolled type 2 diabetes mellitus 526479096 E11.65 A1c= None recent; was 8.9 (05/04); was 7.1% (04/02); was 7.6 (09/02); was 7.5; increasing from 7.1 (05/01); Had been 7.6 like 03/30; (was 8.6). Metformin and Trulicity 1.5 (increased in 05/04). AM BG look high. Update labs- if a1c still over 8%, will likely want to try increasing Trulicity. May also want to consider GLIP or SGLT2i (may be worth getting echo to evaluate EF) If a1c close to 7%, can emphasize pursuit of lifestyle options (bike and dietary efforts). Discuss with patient f/u with diabetes nurse Thyroid fu nction tests abnormal 519600399 R94.6 TSH has been at LLN consistent ly but has not been under 0.1 (threshold for recommenda tion of treating subclinica l disease). TSH= 0.32; (04/02); was 0.24 (12/01 and 09/02); was 0.13 (04/01 and 01/30); was 0.19 (05/01); was 0.2 (10/29) In past, has had TSH values of 0.4 (2015)- was 0.68 (./2012)- other values were 0.25, 0.19 and 0.62. Scan raised question of hot nodule in isthmus. If his TSH was lower, would be concerned about risk for a.fib (obesity makes osteoporos is a bit less likely but still possible) but he has no other manifestat ions of thyrotoxic osis. Follow TFTs - encourage him to get routine labs. Non-toxic multinodular goiter 68370406 E04.2 12/01: Biopsy of right mid nodule Benign cytology. Older benign biopsies of right/isth mus/left in 2012 Discussed concepts with patient of benign vs. malignant and potential issues of growth in neck causing sx (pressure on trachea, esophagus, carotid or jugular) which might ultimately be treated with surgery. For now, can follow with ultrasound yearly to see if any significan t change in this nodule or other smaller nodule(s) which may be present. Real concern is for biopsies that have not been biopsied. Multiple nodules documented on past u/s. THYROID: MNG: Right mid: 1.7 x 2.0 x 1.4 cm. (2018; larger); 1.4 x 1.7 x 1.1 cm (2016); 1.3 x 1.6 x 1.1 cm (2014); 1.3 x 1.6 x 1.0 cm (2013) Right mid (lat)= 1.1x1.1x 0.75 (2018); 1.1 x 1.1 x 0.8 cm (2016) 1.1 x 1.2 x 0.8 cm (2014); 1.1 x 1.2 x 0.8 cm. (2013); Right lower*= 1.6x2.3x1. 3cm (2018*); 1.6 x 2.3 x 1.3 cm (2016); 1.6 x 2.3 x 1.3 cm. (2014); 1.4 x 2.2 x 1.3 cm. (2013); Isthmus*: 2.1x1.8x1. 2; (2019); 2.1 x 1.8 x 1.2 cm. (2016); 2.2 x 2.3 x 1.6 cm. (2014); 2.2 x 2.4 x 1.5 cm (2013) Left mid-lobe*: 4.0x4.3x2. 8 (2018); 4.0 x 4.3 x 2.8 cm (2016); 4.0 x 4.4 x 3.1 cm (2014) *Benign biopsy (Right 2018 and Right/Isth mus/Left 2012) Benign bx in 2012 of right, left and isthmus. Isthmus nodule with increased uptake on previous scan. TSH= 0.32; (04/02); was 0.24 (12/01 and 09/02); was 0.13 (04/01 and 01/30); was 0.19 (05/01); was 0.2 (10/29) Emphasis now on following right mid nodule (the one that hasn't been biopsied but was larger on last u/s in 2018). Peripheral angiopathy due to diabetes mellitus 956393533 E11.51 A1c up to 8.9 (05/04) with no value since 04/02 of 7.1. Had been better on metformin with GLP-1. Trulicity (/5). AM values high. Update a1c. Consider: - increase in trulicity - start glipizide - start SGLT2i (would prefer this if EF is low- consider checking echo). A1c at 7.1 (04/02); was 7.6 from 7.50 had been 7.1% (05/01)- was at 7.6% - had been 8.6%. 04/02: Was doing better with lifestyle, (working less). 05/04: Knows he got lazy- working on getting better (bike up to LR from basement) 09/04: Work more erratic. Holidays not easy. 09/04: No breakdown of skin in feet ( checks). Hx of left foot ulcer - has brawny changes indicating chronic venous insufficie ncy; monofilame nt abnormal on left but he has hx of spinal stenosis which is likely contributi ng. Encourage local care with daily lotion. Not using lotion regularly. Has been on simvastati n 20. Follow labs and adjust prn. Benign ess ential hypertension 1151336 I10 doing well- BP at goal . HCTZ and lisinopril Neuropathy due to diabetes mellitus [id number] E11.40 Past exam documented asymmetry suggests his neuropathy is not purely diabetic- has hx of spinal stenosis. But consequenc es the same- has hx of left foot ulcer. At high risk for repeat ulceration . Reviewed importance of lotion to feet- maybe try lotion with benadryl to help decrease itching (and scratching ) Obstructiv e sleep apnea syndrome [id number] G47.33 Using CPAP every night. Morbid obesity [id number] E66.01 Impacts diabetes, knees, peripheral vascular disease and CV risk.Discu ssed (again) option of surgery since it would take a long time to lose weight medically (even if becomes very adherent to diet and exercise [which is hard given knees]). [id number] María Tovar RN, BSN, [facility] , [address] [address] 10/22/2020 14:32:33 10/23/2020 10:49:24 Uncontrolled type 2 diabetes mellitus [id number] E11.65 -Virtual Visit with Prashant cummins or the [facility]. -Kindly referred by Dr. Rodriguez for diabetes education. -He has had Type 2 diabetes for 20 years now (he was diagnosed at the age of 41). 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 -Last A1C was: 7.8% in October, down from 8.9% in April. -He has his meter with him. He has a [employer]. 10/22- 8 am- 143; 1:30 pm- 106 3/- 8 am- 133; 1 pm- 120; 6 pm- 116 /- 8 am- 168; 1 pm- 122; 6 pm- 125 10/18- am- 148 3/- 8 am- 132; 1 pm- 115; 6 pm- 116 3/- 8 am- 134 3/- 8 am- 148; 6 pm- 124 32- 8 am- 150; 1 pm- 113; 6 pm- 117 3/- 8 am- 144; 1 pm- 129; 6 pm- 128 -Current Medication s: Metformin ER 500 mg, 2 tablets twice a day. Trulicity 1.5 mg once a week (Tuesday morning) -He admits he started eating more and would cheat and then be good a couple of days. It was not pandemic related, he thinks it was more laziness. -He changed his diet significan tly since he last spoke with Dr. Rodriguez on September 11. -Has lost [address] Rodriguez. -He works in [place], he gets home by 6:30 pm. He finds his evening schedule causes his blood sugars to be higher in the morning. He tries to eat more at lunch and have a facility maintenance helper dinner. -He has 6 grandchild rambo (and 4 children) and he still spends time with them. -His mother had Type 1 diabetes, she was diagnosed at 5 years old. She went to the [facility]. -He is still trying to understand what foods affect his blood sugar, especially at night time. -He is not very active. He walks at work. Pre-COVID, he use to walk around the [place]. He has two arthritic knees. He has an exercise bike. He gets home late; and after a long day he is not as interested in exercising . When the weather gets better, he hopes to be more active. -PLAN: Continue current diet and checking his glucose 3x/day. Overall, he is doing much better and losing weight. He is really restrictin g his carbohydra te intake and we discussed how many carbohydra linnea he can eat if he decides to eat more carbohydra linnea in the future. Sometimes, it is hard to restrict the carbohydra te completely and he agrees. Reviewed: Importance of checking blood sugars. How diabetes can be progressiv e. Carbohydra te counting and the recommende d carbohydra te intake for men with diabetes. [id number] María Tovar, RN, BSN, [facility] , [facility] [address] [place] [address] 11/27/2020 15:16:43 12/01/2020 11:06:17 Uncontrolled type 2 diabetes mellitus [id number] E11.65 -Virtual Visit with Prashant cummins or the [facility]. -Kindly referred by Dr. Rodriguez for diabetes education. -He has had Type 2 diabetes for 20 years now (he was diagnosed at the age of 41). 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 -Last A1C was: 7.8% in October, down from 8.9% in April. -He has his meter with him. He has a [employer]. -Reviewed blood sugars over computer. 11/27- am- 128; 1:30- 104 11/26- am- 120; 1 pm- 105; 7 pm- 105 11/25- am- 114; 2 pm- 102; 7 pm- 90 11/24- am- 125; 1 pm- 121; 6 pm- 105 11/23- am- 137; 1 pm- 107; 6 pm- 118 10- am- 126; 1 pm- 119; 6 pm- 110 11/21- am- 127; 1 pm- 111; 6 pm- 111 11/20- am- 124; 1 pm- 123; 6 pm- 122 11/19- am- 123; 1 pm- 108; 6 pm- 116 4- am- 135; 1 pm- 115; 6 pm- 127 -All blood sugars are before meals. -Current Medication s: Metformin ER 500 mg, 2 tablets twice a day. Trulicity 1.5 mg once a week (Tuesday morning) -He has lost a total of 33 lbs since August (when last seen by Dr. Rodriguez). -He is changing his diet, trying to be more active. He is trying to watch what time he is eating and what he is eating. He deviates on Sundays (when he goes out to breakfast with his ). -He has limited his carbohydra linnea and increased his vegetable intake. He is watching his fat intake, along with carbohydra te intake. He is avoiding sauces like BBQ or creamy sauces. He will have hot sauce instead. -He is trying not to snack between meals: he will have veggies, olives, and pickles. -He is trying to discipline himself from snacking. -He works in [place], he gets home by 6:30 pm. He finds his evening schedule causes his blood sugars to be higher in the morning. He tries to eat more at lunch and have a facility maintenance helper dinner. -PLAN: Overall, he is doing excellent. He is restrictin g his carbohydra te intake and his blood sugars are responding nicely. Encouraged to keep up the great work. Also recommende d to talk with us again in a few months if he feels that his carbohydra te intake is too restrictiv e so that we can review how many carbohydra linnea are recommende d with meals. No changes made. Encouraged to continue checking BG 3x/day and following the same diet his is currently following. Reviewed: Importance of checking blood sugars. Carbohydra te counting and the recommende d carbohydra te intake for men with diabetes. [id number] Tremaine Rodriguez MD Endocrino logy, [facility] [address] [place] [address] 01/08/2021 13:48:28 01/12/2021 06:27:13 Uncontrolled type 2 diabetes mellitus [id number] E11.65 A1c= 7.0% (01/02); was 7.8 (11/02); was 8.9 (05/04); was 7.1% (04/02); was 7.6 (09/02); was 7.5; increasing from 7.1 (05/01); Had been 7.6 like 03/30; (was 8.6). Metformin and Trulicity 1.5 (increased in 05/04). Increase to 3.0 (01/02). AM BG slightly higher than rest of day but still towards day. Could consider low dose of GLIP to help lower AM values. Theresaatiолег ramos, could use SGLT2i (may be worth getting echo to evaluate EF). With a1c at 7%, work to increase trulicity Emphasize pursuit of lifestyle options (bike and dietary efforts). Peripheral angiopathy due to diabetes mellitus [id number] E11.51 A1c= 7% (first time since 2012). Was up to 8.9 (05/04) with no value since 04/02 of 7.1. A1c at 7.1 (04/02); was 7.6 from 7.50 had been 7.1% (05/01)- was at 7.6% - had been 8.6%. Had been better on metformin with GLP-1. Trulicity (1.5). AM values high. Update a1c. Consider: - increase in trulicity - start glipizide - start SGLT2i (would prefer this if EF is low- consider checking echo). After discussing options, pt. agrees to increase trulicity 01/02: No breakdown of skin in feet ( checks). Hx of left foot ulcer - has brawny changes indicating chronic venous insufficie ncy; monofilame nt abnormal on left but he has hx of spinal stenosis which is likely contributi ng. Encourage local care with daily lotion. Not using lotion regularly. Has been on simvastati n 20. Follow labs and adjust prn. Benign ess ential hypertension 5921859 I10 doing well- BP at goal . HCTZ and lisinopril Non-toxic multinodular goiter [id number] E04.2 12/01: Biopsy of right mid nodule Benign cytology. Older benign biopsies of right/isth mus/left in 2012 Discussed concepts with patient of benign vs. malignant and potential issues of growth in neck causing sx (pressure on trachea, esophagus, carotid or jugular) which might ultimately be treated with surgery. For now, can follow with ultrasound yearly to see if any significan t change in this nodule or other smaller nodule(s) which may be present. Real concern is for biopsies that have not been biopsied. Multiple nodules documented on past u/s. THYROID: MNG: Right mid: 1.7 x 2.0 x 1.4 cm. (2019; larger); 1.4 x 1.7 x 1.1 cm (2016); 1.3 x 1.6 x 1.1 cm (2014); 1.3 x 1.6 x 1.0 cm (2013) Right mid (lat)= 1.1x1.1x 0.75 (2018); 1.1 x 1.1 x 0.8 cm (2016) 1.1 x 1.2 x 0.8 cm (2014); 1.1 x 1.2 x 0.8 cm. (2013); Right lower*= 1.6x2.3x1. 3cm (2019*); 1.6 x 2.3 x 1.3 cm (2016); 1.6 x 2.3 x 1.3 cm. (2014); 1.4 x 2.2 x 1.3 cm. (2013); Isthmus*: 2.1x1.8x1. 2; (2018); 2.1 x 1.8 x 1.2 cm. (2016); 2.2 x 2.3 x 1.6 cm. (2014); 2.2 x 2.4 x 1.5 cm (2013) Left mid-lobe*: 4.0x4.3x2. 8 (2018); 4.0 x 4.3 x 2.8 cm (2016); 4.0 x 4.4 x 3.1 cm (2014) *Benign biopsy (Right 2018 and Right/Isth mus/Left 2012) Benign bx in 2012 of right, left and isthmus. Isthmus nodule with increased uptake on previous scan. TSH= 0.32; (04/02); was 0.24 (12/01 and 09/02); was 0.13 (04/01 and 01/30); was 0.19 (05/01); was 0.2 (10/29) Emphasis now on following right mid nodule (the one that hasn't been biopsied but was larger on last u/s in 2018). 01/02: U/S in fall before next visit. Thyroid fu nction tests abnormal [id number] R94.6 TSH has been at LLN consistent ly but has not been under 0.1 (threshold for recommenda tion of treating subclinica l disease). TSH= 0.32; (04/02); was 0.24 (12/01 and 09/02); was 0.13 (04/01 and 01/30); was 0.19 (05/01); was 0.2 (10/29) In past, has had TSH values of 0.4 (2015)- was 0.68 ()- other values were 0.25, 0.19 and 0.62. Scan raised question of hot nodule in isthmus. If his TSH was lower, would be concerned about risk for a.fib (obesity makes osteoporos is a bit less likely but still possible) but he has no other manifestat ions of thyrotoxic osis. Follow TFTs - encourage him to get routine labs. 01/02: continue to monitor. Neuropathy due to diabetes mellitus [id number] E11.40 Exam has documented asymmetry suggesting his neuropathy is not purely diabetic- has hx of spinal stenosis. But consequenc es the same- has hx of left foot ulcer. At high risk for repeat ulceration . Reviewed importance of lotion to feet- maybe try lotion with benadryl to help decrease itching (and scratching ) Obstructiv e sleep apnea syndrome 10749454 G47.33 Using CPAP every night. Morbid obesity 455653952 E66.01 Impacts diabetes, knees, peripheral vascular disease and CV risk. Discussed (again) option of surgery since it would take a long time to lose weight medically (even if becomes very adherent to diet and exercise [which is hard given knees]). Hope to see benefit of increase in Trulicity to 3 mg weekly. [id number] Adelita Navarro, [facility], [facility] [address] [place] [address] 01/15/2021 08:47:45 01/27/2021 15:06:35 Type 2 diabetes mellitus without complication 226704582 E11.9 T2DM, well controlled , No diabetic retinopath y OU. pt ed on importance of good blood sugar control, monitor 1 yr with CEE Presbyopia 12460860 H52. 4 ok to cont with OTC reading glasses [id number] Kev Heaton MD , [facility], [address] [place] [address] 01/21/2021 13:46:52 01/31/2021 12:32:55 Benign essential hypertension 0436568 I10 BP at goal of less than 130/80. On lower side when last checked. Taking HCTZ 12.5 mg 1 tablet daily and Lisinopril 20 mg 1 tablet daily. Denies chest/arm pain on exertion, SOB, or palpitatio ns. Will recheck BP in 1 mos at wellness. Obstructiv e sleep apnea syndrome 22035675 G47.33 Well managed with CPAP machine. Uncontroll ed type 2 diabetes mellitus [id number] E11.65 A1c 7! Working to improve lifestyle. Has lost 50 lbs. In care with Dr. Rodriguez, had recent visit. Takes Metformin ER 500 mg 2 tablets BID. Taking Trulicity. BG at home well at goal. Denies hypoglycem ia. Denies change in vision or frequent urination. Working to increase whole grains. Less processed foods. Recent DM foot exam w/ Dr. Rodriguez. Discussed risk/benef it of daily aspirin use. Pt. will do research and f/u at upcoming wellness. Taking Simvastati n 20 mg, LDL well below 100, discussed possibly reducing in future. Will f/u at wellness. [id number] Kev Heaton MD , [facility], [address] [place] [address] 02/19/2021 09:52:24 02/19/2021 10:45:41 Adult health examination 723619681 Z00.00 Will return second IFOBT kit soon.Will consider daily aspirin use. Counseling 025392422 Z71 .9 including cardivascu lar risk reduction counseling Depression screening 171 005184 Z13.31 depression screening tool administer ed, entered into emr, scored and discussed, time greater than 7.5 minutes Screening for alcohol abuse 435317305 Z13.39 Essential hypertension 61416557 I10 Obstructiv e sleep apnea syndrome 17701007 G47.33 Well managed with CPAP machine. Active or passive immunization [id number] Z23 Impacted cerumen 2183744 6 H61.21 Uncontroll ed type 2 diabetes mellitus 978115017 E11.65 A1c 7! Working to improve lifestyle. Has lost 50 lbs. In care with Dr. Rodriguez, had recent visit. Takes Metformin ER 500 mg 2 tablets BID. Taking Trulicity. BG at home well at goal. Denies hypoglycem ia. Denies change in vision or frequent urination. Working to increase whole grains. Less processed foods. Recent DM foot exam w/ Dr. Rodriguez. Discussed risk/benef it of daily aspirin use. Pt. will do research and f/u at upcoming wellness. Taking Simvastati n 20 mg, LDL well below 100, discussed possibly reducing in future. Will f/u at wellness. Non-toxic multinodular goiter 43058854 E04.2 Upcoming US in July. Low back pain 921946780 M54.5 Generalize d osteoarthritis 091151886 M15.9 Bilateral knee pain, osteoarthr itis Has tried PT. Was in care with [facility]. Not wanting to undergo surgery. Benign ess ential hypertension 5057588 I10 BP at goal of less than 130/80. On lower side when last checked. Taking HCTZ 12.5 mg 1 tablet daily and Lisinopril 20 mg 1 tablet daily. Denies chest/arm pain on exertion, SOB, or palpitatio ns. Will recheck BP in 1 mos at wellness. Advance care planning 71 9524360 Z71.89 MOLST and HCP provided today [id number] Kev Heaton MD , [facility], [address] [place] [address] 05/12/2021 08:59:38 05/12/2021 14:07:43 Swelling of limb 72623513 M79.89 L foot, ankle, and lower calf. Erythemato us, edematous, warm to touch. C/w cellulitis . Hx of venous insufficie ncy. Wells Score -1. Denies fever/chil ls, SOB, or cough. Consulted w/ [facility]O who also evaluated patient and agrees w/ plan for lab work today, f/u on , and treatment for cellulitis . Rx to pharmacy for Doxycyclin e 100 mg 1 tablet BID and daily probiotic at least 2 hours of abx. Sun sensitivit y. Seek care at ED if sxs worsen. [id number] Kev Heaton MD , [facility], [address] [place] [address] 05/14/2021 08:39:35 05/14/2021 10:08:01 Swelling of limb 54013713 M79.89 L foot, ankle, and lower calf. Started on Doxycyclin e x 10 days on 05/12 for presumptiv e cellulitis . Swelling, redness, tenderness still present but much improved. Swelling as decreased. Able to move toes now. Hx of venous insufficie ncy. Wells Score -1. Denies fever/chil ls, SOB, or cough. CRP midly elevated. Will repet today. US today to r/o DVT today. Continue Doxy and f/u Tuesday unless sxs are worsening. Reviewed UC hours. Active or passive immunization 111930621 Z23 [id number] Kev Heaton MD , [facility], [address] [place] [address] 05/18/2021 09:25:01 05/19/2021 12:41:59 Onychomycosis of toenails 183122144 B35.1 Referral to podiatry, needs help w/ nail trimming. Venous ins ufficiency of leg 822678794 I87.2 Lef leg. Advised compressio n stockings. They are hard to put on so will try Juxta-Lite s. Swelling of limb 1681033 9 M79.89 L foot, ankle, and lower calf, 70% improved. Started on Doxycyclin e x 10 days on 05/12 for presumptiv e cellulitis . Swelling, pain, and redness have decreased. Able to move toes now. Hx of venous insufficie ncy. Wells Score -1. US negative for DVT. Denies fever/chil ls, SOB, or cough. CRP midly elevated. Complete course of Doxy. If sxs continue to improve OK to return to work on 05/25, if not f/u. [id number] Tremaine Rodriguez MD Endocrino log, [address] [address] 08/13/2021 09:59:27 08/16/2021 13:31:56 Uncontrolled type 2 diabetes mellitus 399924591 E11.65 A1c= 6.9 (08/04 05/05); was 7.0% (01/02); was 7.8 (11/02); was 8.9 (05/04); was 7.1% (04/02); was 7.6 (09/02); was 7.5; increasing from 7.1 (05/01); Had been 7.6 like 03/30; (was 8.6). Metformin and Trulicity 3.0 (since 01/02). 08/04: No meter- lost but says he has recently found it. Can't exercise at present with left foot ulcer Peripheral angiopathy due to diabetes mellitus 195590722 E11.51 A1c= 6.9 (08/04 and 05/05); was 7.0% (5); (first time since 2012). Was up to 8.9 (05/04) with no value since 04/02 of 7.1. Metformin with GLP-1. Trulicity (3.0). Previous hx of left foot ulcer - has brawny changes indicating chronic venous insufficie ncy; monofilame nt abnormal on left but he has hx of spinal stenosis which is likely contributi ng. 08/04: Foot ulcer with lower leg cellulitis - had course of doxy - Recommend wound care referral. Encourage local care with daily lotion. Has been on simvastati n 20. Follow labs and adjust prn. Benign ess ential hypertension 3630878 I10 Doing well- BP at goal . HCTZ and lisinopril Thyroid fu nction tests abnormal 913175384 R94.6 TSH has been at LLN consistent ly but has not been under 0.1 (threshold for recommenda tion of treating subclinica l disease). TSH= 0.08 (05/05); was 0.05 (11/02); was 0.32; (04/02); was 0.24 (12/01 and 09/02); was 0.13 (04/01 and 01/30); was 0.19 (05/01); was 0.2 (10/29) In past, has had TSH values of 0.4 (2015)- was 0.68 ()- other values were 0.25, 0.19 and 0.62. Scan raised question of hot nodule in isthmus. With lower TSH, now at higher risk for a.fib (obesity makes osteoporos is a bit less likely but still possible) Suggest evaluation by surgeon- given general increase in nodules, may be worth considerin g surgery. Neuropathy due to diabetes mellitus 666373608 E11.40 Exam has documented asymmetry suggesting his neuropathy is not purely diabetic- has hx of spinal stenosis. But consequenc es the same- has hx of left foot ulcer. At high risk for repeat ulceration . Reviewed importance of lotion to feet- maybe try lotion with benadryl to help decrease itching (and scratching ) Obstructiv e sleep apnea syndrome 04580061 G47.33 Using CPAP every night. Morbid obesity 292671480 E66.01 Impacts diabetes, knees, peripheral vascular disease and CV risk. Discussed (again) option of surgery since it would take a long time to lose weight medically (even if becomes very adherent to diet and exercise [which is hard given knees]). Hope to see benefit of increase in Trulicity to 3 mg weekly. Pressure i njury of heel 274500830 L89.609 08/04:Smal l but significan t with cellulitis on lower leg (still present despite recent course of doxy). 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 Silver alganate roping. Toxic nodular goiter 577 74117 E05.20 12/01: Biopsy of right mid nodule. Benign cytology. Older benign biopsies of right/isth mus/left in 2012 In past, have discussed concepts with patient of benign vs. malignant and potential issues of growth in neck causing sx (pressure on trachea, esophagus, carotid or jugular) which might ultimately be treated with surgery.: Issue now is that TSH has been twice < 0.1. In addition nodules appear to continue to increase in size TSH=0.08 (05/05); was 0.05 (11/02); was 0.32; (04/02); was 0.24 (12/01 and 09/02); was 0.13 (04/01 and 01/30); was 0.19 (05/01); was 0.2 (10/29) Isthmus nodule with increased uptake on previous scan. Discussed options. Suggest evaluation by surgeon- not urgent but this way can begin to plan ULTRASOUND STUDIES- SUMMARIESR ight mid*: 2.1x2.8x1. 3 (PRELIM 08/04); was 1.7 x 2.0 x 1.4 cm. (2018; larger); 1.4 x 1.7 x 1.1 cm (2016); 1.3 x 1.6 x 1.1 cm (2014); 1.3 x 1.6 x 1.0 cm (2013) Right mid (lat)= 1.0x1.3x1. 2 (PRELIM 08/04); was 1.1x1.1x 0.75 (2018); 1.1 x 1.1 x 0.8 cm (2016) 1.1 x 1.2 x 0.8 cm (2014); 1.1 x 1.2 x 0.8 cm. (2013); Right lower*= 2.1x3.0x1. 3 (PRELIM 08/04); was 1.6x2.3x1. 3cm (2018*); 1.6 x 2.3 x 1.3 cm (2016); 1.6 x 2.3 x 1.3 cm. (2014); 1.4 x 2.2 x 1.3 cm. (2013); Isthmus*: 3.3x2.8x2. 2 (PRELIM 08/04); was 2.1x1.8x1. 2; (2018); 2.1 x 1.8 x 1.2 cm. (2016); 2.2 x 2.3 x 1.6 cm. (2014); 2.2 x 2.4 x 1.5 cm (2013) Left mid-lobe*: 4.4x3.8x3. 1 (PRELIM 08/04); was 4.0x4.3x2. 8 (2018); 4.0 x 4.3 x 2.8 cm (2016); 4.0 x 4.4 x 3.1 cm (2014)*Clark ign biopsy (Right 2018 and Right/Isth mus/Left 2012)*Rachdi gn bx in 2012 of right, left and isthmus. [id number] Tremaine Rodriguez MD Endocrino logy, [address] [address] 02/18/2022 13:56:37 02/19/2022 10:20:12 Uncontrolled type 2 diabetes mellitus [id number] E11.65 A1c= 6.9 (02/03 and 08/04 and 05/05); was 7.0% (01/02); was 7.8 (11/02); was 8.9 (05/04); was 7.1% (04/02); was 7.6 (09/02); was 7.5; increasing from 7.1 (05/01); Had been 7.6 like 03/30; (was 8.6). Metformin and Trulicity 3.0 (since 01/02). 03/05: No meter- reports he forgot it.08/04: No meter- lost but says he has recently found it. Peripheral angiopathy due to diabetes mellitus [id number] E11.51 A1c= 6.9 (03/05 and 08/04 and 05/05); was 7.0% (01/02); (first time since 2012). Was up to 8.9 (05/04) with no value since 04/02 of 7.1. Metformin with GLP-1. Trulicity (3.0 since 01/02).03/05 : No meter- reports he forgot it.08/04: No meter- lost but says he has recently found it. Hx (08/04) of left foot ulcer - has brawny changes indicating chronic venous insufficie ncy; monofilame nt abnormal on left but he has hx of spinal stenosis which is likely contributi ng. Encourage local care with daily lotion. Has been on simvastati n 20. Follow labs and adjust prn. 03/05: Increase Trulicity t4o 4.5 for CV risk and weight. Toxic nodular goiter 577 88153 E05.20 12/01: Biopsy of right mid nodule. Benign cytology. Older benign biopsies of right/isth mus/left in 08/04: Issue has been that TSH has been twice < 0.1. In addition nodules appear to continue to increase in size TSH=0.06 (03/05); was 0.07 (02/03); was 0.08 (05/05); was 0.05 (11/02); was 0.32; (04/02); was 0.24 (12/01 and 09/02); was 0.13 (04/01 and 01/30); was 0.19 (05/01); was 0.2 (10/29) Isthmus nodule with increased uptake on previous scan. Has seen Wil and is planning for total thyroidect sanchez in 05/06. ULTRASOUND STUDIES- SUMMARIESR ight mid*: 2.1x2.8x1. 3 (08/04); was 1.7 x 2.0 x 1.4 cm. (2018; larger); 1.4 x 1.7 x 1.1 cm (2016); 1.3 x 1.6 x 1.1 cm (2014); 1.3 x 1.6 x 1.0 cm (2013) Right mid (lat)= 1.0x1.3x1. 2 (08/04); was 1.1x1.1x 0.75 (2018); 1.1 x 1.1 x 0.8 cm (2016) 1.1 x 1.2 x 0.8 cm (2014); 1.1 x 1.2 x 0.8 cm. (2013); Right lower*= 2.1x3.0x1. 3 (08/04); was 1.6x2.3x1. 3cm (2018*); 1.6 x 2.3 x 1.3 cm (2016); 1.6 x 2.3 x 1.3 cm. (2014); 1.4 x 2.2 x 1.3 cm. (2013); Isthmus*: 3.3x2.8x2. 2 (08/04); was 2.1x1.8x1. 2; (2018); 2.1 x 1.8 x 1.2 cm. (2016); 2.2 x 2.3 x 1.6 cm. (2014); 2.2 x 2.4 x 1.5 cm (2013) Left mid-lobe*: 4.4x3.8x3. 1 (08/04); was 4.0x4.3x2. 8 (2018); 4.0 x 4.3 x 2.8 cm (2016); 4.0 x 4.4 x 3.1 cm (2014)*Clark ign biopsy (Right 2018 and Right/Isth mus/Left 2012)*Rachid gn bx in 2012 of right, left and isthmus. Thyroid fu nction tests abnormal [id number] R94.6 TSH has been at LLN consistent ly but has not been under 0.1 (threshold for recommenda tion of treating subclinica l disease). TSH= 0.06 (03/05); was 0.07 (02/03); was 0.08 (05/05); was 0.05 (11/02); was 0.32; (04/02); was 0.24 (12/01 and 09/02); was 0.13 (04/01 and 01/30); was 0.19 (05/01); was 0.2 (10/29) In past, has had TSH values of 0.4 (2015)- was 0.68 ()- other values were 0.25, 0.19 and 0.62. Scan raised question of hot nodule in isthmus. With lower TSH, now at higher risk for a.fib (obesity makes osteoporos is a bit less likely but still possible) Has seen Wil. Planning for thyroidect sanchez in 05/06. Neuropathy due to diabetes mellitus [id number] E11.40 Exam has documented asymmetry suggesting his neuropathy is not purely diabetic- has hx of spinal stenosis. But consequenc es the same- has hx of left foot ulcerv(). He is at high risk for repeat ulceration . Reviewed importance of lotion to feet- maybe try lotion with benadryl to help decrease itching (and scratching ) Obstructiv e sleep apnea syndrome 80521803 G47.33 Using CPAP every night. Morbid obesity 519767557 E66.01 Impacts diabetes, knees, peripheral vascular disease and CV risk. Discussed (again) option of surgery since it would take a long time to lose weight medically (even if becomes very adherent to diet and exercise [which is hard given knees]). Increase Trulicity to 4.5 mg weekly. [id number] Adelita Navarro, [facility], [address] [address] 06/04/2022 13:30:14 06/04/2022 14:53:37 Type 2 diabetes mellitus without complication 485190762 E11.9 T2DM, well controlled , No diabetic retinopath y OU. pt ed on importance of good blood sugar control, monitor 1 yr with CEE Presbyopia 50264192 H52. 4 ok to cont with OTC reading glasses Nuclear se nile cataract 033148116 H25.13 mild OU. pt ed. recommend observatio n. [id number] Tremaine Rodriguez MD Endocrino logy, [address] [address] 08/12/2022 10:33:56 08/17/2022 10:46:51 Peripheral angiopathy due to diabetes mellitus 892771995 E11.51 A1c= 6.8 (05/06) was 6.9 (03/05 and 08/04 and 05/05); was 7.0% (01/02); (first time since 2012). Was up to 8.9 (05/04) with no value since 04/02 of 7.1. Metformin with GLP-1. Trulicity (3.0 in 2021 because 4.5 unavailabl e. 3.0 was started 01/02).03/05 : No meter- reports he forgot it.08/04: No meter- lost but says he has recently found it.08/05: no meter- forgot it Hx (08/04) of left foot ulcer - has brawny changes indicating chronic venous insufficie ncy; monofilame nt abnormal on left but he has hx of spinal stenosis which is likely contributi ng. Encourage local care with daily lotion. Has been on simvastati n 20. Follow labs and adjust prn. 03/05: Increased Trulicity to 4.5 for CV risk and weight.: On 3.0 d/t unavailabi lity of 4.5. Hope to get back to 4.5 or even switch to Mounjaro. Neuropathy due to diabetes mellitus 519768347 E11.40 Exam has documented asymmetry suggesting his neuropathy is not purely diabetic- has hx of spinal stenosis. But consequenc es the same- has hx of left foot ulcer (08/04). He is at high risk for repeat ulceration . Reviewed importance of lotion to feet- maybe try lotion with benadryl to help decrease itching (and scratching ) Obstructiv e sleep apnea syndrome 13006329 G47.33 Using CPAP every night. Morbid obesity 503678346 E66.01 Impacts diabetes, knees, peripheral vascular disease and CV risk. Discussed (again) option of surgery since it would take a long time to lose weight medically (even if becomes very adherent to diet and exercise [which is hard given knees]). Hope to get back to Trulicity at 4.5 mg weekly. Benign ess ential hypertension 6563525 I10 Doing well- BP at goal . HCTZ and lisinopril Postoperat sudarshan hypothyroidism 35177428 E89.0 On 150mcg TFTs next weekRx today for 1 month.Long er (90d) based on upcoming labs. [id number] Michael Coombs MD , [facility], [address] [place] [address] 09/15/2022 14:32:12 09/21/2022 11:39:10 Uncontrolled type 2 diabetes mellitus 001150139 E11.65 Reviewed recent labs w/ pt. Has endo appt next month. Morbid obesity 844374816 E66.01 to start physical therapy for knee. Discussed non-weight bearing exercise. Generalize d osteoarthritis 304570118 M15.9 Pt reporting hx bone-on-reagan ne arthritis in knees, has not been evaluated by ortho in some time, no recent xrays in chart. As pt exeriencin g increased pain and instabilit y, discussed may be worth re-eval and finding out of surgical candidate for replacemen t. Discussed physical therapy for general strengthen ing and fall prevention . Pain meds as below prn, discussed takign ibuprofen w/ food and water and using sparingly. F/u w/ xray results. Essential hypertension 77542084 I10 <140/90, At goal today. Active or passive immunization 190576057 Z23 [id number] Michael Coombs MD , [facility], [address] [place] [address] 12/15/2022 15:21:57 12/15/2022 16:40:34 Adult health examination 913179920 Z00.01 Reviewed recommende d routine age and gender specific health screenings and vaccines per current guidelines . Discussed healthy lifestyle recommenda tions- 150 minutes per week of physical activity, varied nutrient-d ense diet, stress management , sun safety, seeing eye and dental regularly. RTC in 1 year, sooner prn. Depression screening 171 581225 Z13.31 depression screening tool administer ed Screening for alcohol abuse 900652088 Z13.39 Alcohol use screening tool administer ed Screening for malignant neoplasm of prostate 933190622 Z12.5 PSA testing for ages 55-69 risks and benefits discussed {{patient declines testing* t est ordered}}. Screening for malignant neoplasm of colon 350137070 Z12.11 Pt states he did stool kit about a year ago, thinks hes due for another stool kit, declines colo Active or passive immunization 931645114 Z23 Pneumo: reminded pt to get at the pharmacySh ingles: reminded pt to get at the pharmacyCo vid: pt is all up to date Generalize d osteoarthritis 406975583 M15.0 Pt reporting worsening pain, difficulty walking, recent falls at home, incr hip/back pain, relieved by stretching exercises at home. Reviewed recent xray results- pt w/ severe arthritis of knees bilaterall y. Referred to ortho surg at last visit, no appt yet- encouraged pt to call and schedule, lmk if wants to switch referral. Strongly encouraged physical therapy while awaiting for eval for rehab/fall prevention , pt agreeable. 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 Discussed how hip/back pain may be 2/2 knee OA, or may be 2/2 worsening spinal stenosis or other disc issue. Non-toxic multinodular goiter 44858854 E04.2 hx surgical removal of thyroid, wondering if thyroid labs could have anything to do with joint pain/numbn ess/poor balance. Reviewed that other causes more likely but can discuss w/ endo directly. Pain of ri ght shoulder joint 6703887854 3710308 M25.511 chronic, pt having to twist back in order to reach up, may be contributi ng to back pain. Morbid obesity 095978334 E66.01 to start physical therapy. discussed med options- pt already on high-dose trulicity, endo tried to switch to mounjaro Benign ess ential hypertension 6278682 I10 controlled today, on hctz, lisinopril Sciatica 41932549 M54.30 reviewed how numbness may be 2/2 stenosis of back [id number] Michael Coombs MD , [facility], [address] [place] [address] 02/01/2023 08:58:09 02/01/2023 10:00:48 Screening for malignant neoplasm of colon 600789007 Z12.11 Referral for a DIRECT booked colonoscop y. This patient is a healthy ASA Class 1 or 2 patient (only mild systemic disease), or a STABLE, well controlled insulin dependent diabetic. They do not have serious cardiac disease ie AK/angiopl asty within 1 year, symptomati c CHF; renal failure with CKD 4 or 5; take Coumadin, Plavix, Aggrenox, etc. Polyneurop athy due to diabetes mellitus 46801635 E11.42 Pt reporting incr pain at night in R foot, also reporting decr sensation in fingertips . decr sensation of feet bilat, L>R on exam today. has known polyneurop athy, both dm and spinal stenosis may be contributi ng.discuss ed treatment options, will start duloxetine .f/u 2mo, sooner prn Generalize d osteoarthritis 024000374 M15.0 refer to [facility] for bilat knee OA, previously ptcont tylenol, ibuprofen, diclofenac prn Benign ess ential hypertension 9658582 I10 controlled today, on hctz, lisinopril Spinal brennen nosis of lumbar region 68803072 M48.061 Per pt recently evaluated by P&S, recommende d course of PT before offering further interventi onhas PT intake next weekcont tylenol, ibuprofen, diclofenac prnwill request P&S OV note Uncontroll ed type 2 diabetes mellitus 598001752 E11.65 followed by endo, labs and f/u scheduled [id number] Isaura Helms, PT Physical Therapy, [address] [address] 02/09/2023 08:15:41 02/09/2023 10:02:04 Pain of right shoulder joint [id number] 2824229 M25.511 Patient is a 67-year old male who presents to physical therapy with complaint of right shoulder dysfunctio n which is worsening. Physical examinatio n, though limited as an extensive history was required, revealed decreased R shoulder AROM with compensato ry scapular movements, decreased joint mobility, and significan t weakness during resisted testing. Further assessment will be performed at patient's next visit and goals updated as appropriat e at that time. Suspect rotator cuff tear d/t loss of strength w/o pain. Right shoulder OA also likely. Patient has significan t functional limitation in their ADLs. Their primary limitation s are with any movement that requires right shoulder flexion, ABD, or ER, including position changes, dressing and bathing tasks, food preparatio n, and home maintenanc e tasks. Skilled physical therapy is indicated to safely and progressiv richard address impairment s and functional limitation s as outlined below. Patient is a fair candidate for physical therapy due to a good support system, and motivation to actively participat e in their plan of care. Progress may be limited by multiple concomitan t health conditions . Short Term Goals:In 4 weeks, patient will:1. Perform right shoulder flexion and abduction in available range without compensato ry movements. 2. Demonstrat e 45 degrees of right shoulder ER AROM. Retail Sales Lead Goals:In 8 weeks, patient will:1. Demonstrat e functional AROM of the right shoulder.2 . Demonstrat e functional strength of the right shoulder.3 . Demonstrat e independen ce with comprehens sudarshan HEP. Treatment Plan: Patient to return for 10 visits over 12 weeks. We expect significan t change in pain, impairment and function in this time frame. Treatment to Include: Continuing assessment , therapeuti c exercise, patient education, HEP (initiated ), manual therapy PRN, modalities PRN. [id number] Isaura Helms, PT Physical Therapy, [address] [address] 02/16/2023 08:30:25 02/16/2023 09:50:56 Pain of right shoulder joint [id number] 9942936 M25.271 [id number] Isaura Helms, PT Physical Therapy, [address] [address] 03/02/2023 07:58:51 03/02/2023 17:23:45 Pain of right shoulder joint 7186619046 8939589 M25.177 [id number] Michael Coombs MD , [facility], OFFICE [address] [place] [address] 05/18/2023 16:05:01 05/18/2023 17:10:43 Benign essential hypertension 0499485 I10 elevated today suspect 2/2 paintaking medsreasse ss in 1-2 weeks Generalize d osteoarthritis 738684901 M15.0 referred to [facility] for bilat knee OA, was offered replacemen t surgerysee ing PT for shoulderco nt tylenol, ibuprofen, diclofenac prn Polyneurop athy due to diabetes mellitus 04292732 E11.42 Pt reporting incr pain at night in R foot, also reporting decr sensation in fingertips . decr sensation of feet bilat has known polyneurop athy- reviewed how this may be contributi ng to weakness/p oor balance.di d not tolerate duloxetine , trial pregabalin . close f/u 2 weeks.rece nt a1c WNL Active or passive immunization 450986797 Z23 Pneumo: reminded pt to get at the pharmacySh ingles: reminded pt to get at the pharmacyCo vid: pt is all up to date Chronic low back pain 27 5612343 M54.50 PT w/ known DDD and chronic back pain, previously evaluated by [facility], told to trial PT and then f/u. Pt present w/ significan t worsening of symptoms- pain, trouble walking, poor balance, new use of walker, difficulty completing ADLs. unilateral weakness noted on exam. No recent xray, will order to assess further. New referral for PT. Encouraged to f/u w/ specialist . f/u 1-2 weeks to review xray results, consider MRI referral. Morbid obesity 954245709 E66.01 has lost a little weight! [id number] Tremaine Rodriguez MD Endocrino logy, [address] [address] 05/25/2023 16:59:43 05/26/2023 07:54:36 Peripheral angiopathy due to diabetes mellitus 003701793 E11.51 A1c= 6.5 (06/06) was 7.1 (12/05) was 6.8 (05/06) was 6.9 (03/05 and 08/04 and 05/05); was 7.0% (01/02); (first time since 2012). Was up to 8.9 (05/04) with no value since 04/02 of 7.1. Metformin with GLP-1. Trulicity (3.0 since 2021 because 4.5 unavailabl e).03/05: No meter- reports he forgot it.08/04: No meter- lost but says he has recently found it.08/05: no meter- forgot it06/06: AM values at goal (reported pt -> staff). Wt. down. Hx (08/04) of left foot ulcer - has brawny changes indicating chronic venous insufficie ncy; monofilame nt abnormal on left but he has hx of spinal stenosis which is likely contributi ng.06/06: Healed left foot ulcer. Has lost weight. doing great Encourage local care with daily lotion. Has been on simvastati n 20. Change to rosuva 20. Follow labs and adjust prn. 03/05: Increased Trulicity to 4.5 for CV risk and weight.: On 3.0 d/t unavailabi lity of 4.5. Hope to get back to 4.5 or even switch to Mounjaro.1 : Still on 3.0. Ok to continue. If can get 4.5, ok to increase (benefit for wt, CV risk reduction, back issues, etc.) Neuropathy due to diabetes mellitus 938398395 E11.40 Exam has documented asymmetry suggesting his neuropathy is not purely diabetic- has hx of spinal stenosis.1 : Told of severe DJD (L/S spine). Using walker.Not a surgical candidate (severity) per PS&S. Suggesting pain management and PT.- Try and see if can get advice about possible use of recumbent bike (has one) Consequenc es still impact risk for foot problems- hx of left foot ulcer (08/04). He is at high risk for repeat ulceration . Reviewed importance of lotion to feet- maybe try lotion with benadryl to help decrease itching (and scratching ) Obstructiv e sleep apnea syndrome 69088341 G47.33 Using CPAP every night. Might be able to re-evaluat e given wt. loss but he is OK with continuing . Morbid obesity 785237174 E66.01 Impacts diabetes, knees, peripheral vascular disease and CV risk. Hope to get back to Trulicity at 4.5 mg weekly. Benign ess ential hypertension 9394520 I10 Doing well- BP at goal . HCTZ and lisinopril Postoperat sudarshan hypothyroidism 50251494 E89.0 On 150mcg TFTs next weekdoing wellTSH= 0.85 (06/06) was 0.5 (02/04) Dyslipidem ia due to type 2 diabetes mellitus 3095583549 02 E78.5 05/07 : 132/181/34 /62.LDL up from 53. (12/05)HDL generally < 40.High TG and low HDL are indicators of risk. On simva 20. Suggest change to rosuva 20. [id number] Isaura Helms, PT Physical Therapy, [address] [address] 05/26/2023 10:57:21 05/30/2023 07:20:31 Mechanical low back pain 617353530 M54.50 Patient is a 68-year old {{female m alexys*}} who presents to physical therapy with complaint of lumbar and right LE pain which is {{improvin g not changing w orsening*} }. Physical examinatio n revealed decreased and painful lumbar ROM, decreased lumbar joint mobility, poor standing tolerance, poor static and dynamic balance, LE muscle weakness, TTP of the lumbar paraspinal s, QL, and gluteals bilaterall y. Findings most consistent with mechanical LBP secondary to degenerati ve changes. Patient has {{signific ant* moder ate mild}} functional limitation in their {{activiti es of daily living* ac tivities of daily living and work capacity a ctivities of daily living and exercise capacity a ctivities of daily living and recreation }}. Their primary limitation s are with sleeping through the night, position changes, sitting for longer than 15 minutes, walking for any distance, bending, and lifting or carrying greater than 5 pounds. Skilled physical therapy is indicated to safely and progressiv richard address impairment s and functional limitation s as outlined below. Patient is a {{good johnathan r* poor}} candidate for physical therapy due to a good support system, and motivation to actively participat e in their plan of care. Progress may be limited by patient's pre-existi ng health conditions . Short Term Goals:In 4 weeks, patient will:1. Perform sit to stand with lumbar pain no greater than 5/10.2. Walk for 500 feet with lumbar pain no greater than 5/10. Retail Sales Lead Goals:In 8 weeks, patient will:1. Perform lumbar AROM with pain no greater than 4/10.2. Get out of bed with lumbar pain no greater than 4/10.3. Walk for 5 minutes with lumbar pain no greater than 5/10.4. Demonstrat e independen ce with comprehens sudarshan HEP. Treatment Plan: Patient to return for 8 visits over 8 weeks. We expect modest change in pain, impairment and function in this time frame. Treatment to Include: Continuing assessment , therapeuti c exercise, patient education, HEP (initiated ), manual therapy PRN, modalities PRN. [id number] Michael Coombs MD , [facility], [address] [place] [address] 05/30/2023 10:35:15 06/02/2023 10:30:10 Benign essential hypertension 8293190 I10 will hold hctz due decr renal functionmo nitor BP at home, close f/u 2 weeks Serum crea tinine above reference range 017734783 R79.89 reviewed recent labs- incr BUN and Cr, significan t decr in GFRmay be 2/2 chronic daily ibuprofen use- agreeable to decreasewi ll hold hctzper HS recs renal ultrasound ordered- pt prefers to recheck labs first next weekencour aged hydrationf /u 2 weeks to review bmp Polyneurop athy due to diabetes mellitus 00845722 E11.42 some mild reliefhad increased to 50mg BID on own, no sedation or other adverse effectswil l incr to 75 BID Spinal brennen nosis of lumbar region 66698766 M48.061 reviewed recent xray results- severe DDD and disc narrowingr eviewed how this is likely causing weakness and difficultl y walking, anticipate will need MRIhas started PT for backhas f/u PS&S this weekclose f/u 2 weeks Uncontroll ed type 2 diabetes mellitus 007295293 E11.65 followed by endo, recent a1c at goal [id number] Michael Coombs MD , [facility], [address] [place] [address] 06/17/2023 14:33:49 06/20/2023 12:42:39 Polyneuropathy due to diabetes mellitus 02275811 E11.42 some mild relief on 100 in AM/175 in PMreviewed would not go above 300 daily dose Spinal brennen nosis of lumbar region 50544633 M48.061 PT w/ progressiv e pain, numbness, and weakness, is not able to get out of the house to get to specialist or PT appts, is only able to walk a few steps w/ walker, but goes into spasm.Conc jaki that needs MRI to confirm diagnosis- will discuss w/ MD ordering outpatient - however will still need to be able to ge there.Pt to call PS&S again to request virtual visit, see what MRI place would be in-network Reviewed red flag s/sx to monitor for, what would be considered a neurologic al emergency and ED visit is warranted. ADDENDUM- discussed case w/ PI- to order lumbar spine w/ contrast for next 2 weeks, try prednisone burstcall to pt, agreeable w/ plan, reviewed side effects w/ steroid Serum crea tinine above reference range 418480401 R79.89 pt has cut back on ibuprofen, is unable to get to lab for recheck Benign ess ential hypertension 6479943 I10 normotensi ve off hctz [id number] Tremaine Rodriguez MD Endocrino logy, [facility] [address] [place] [address] 09/15/2023 09:00:32 09/15/2023 10:17:55 Peripheral angiopathy due to diabetes mellitus 346655547 E11.51 VASCULAR COMPONENT NOT CONTOLLED. A1c= labs today (10/08); was 6.5 (06/06) was 7.1 (12/05) was 6.8 (05/06) was 6.9 (03/05 and 08/04 and 05/05); was 7.0% (01/02); (first time since 2012). Was up to 8.9 (05/04) with no value since 04/02 of 7.1. Metformin with GLP-1. Trulicity (3.0 since 2021 because 4.5 unavailabl e).AM values at goal (meter download). Wt. down. Hx (08/04) of left foot ulcer - has brawny changes indicating chronic venous insufficie ncy; monofilame nt abnormal on left but he has hx of spinal stenosis which is likely contributi ng.06/06: Healed left foot ulcer. Has lost weight. doing great.10/08 : Feet at high risk. In wheelchair because of severe back problems. Both feet numb.Has seen neurosurg and told not operative candidate. Encourage local care with daily lotion. 10/08: Now on rosuva 20. Labs pending (today) Follow labs and adjust prn. 03/05: Increased Trulicity to 4.5 for CV risk and weight.: On 3.0 d/t unavailabi lity of 4.5. Hope to get back to 4.5 or even switch to Mounjaro.1 : Still on 3.0. Ok to continue. If can get 4.5, ok to increase (benefit for wt, CV risk reduction, back issues, etc.)10/08: Try change to mounjaro to help with weight and CV benefit. Dyslipidem ia due to type 2 diabetes mellitus 0828483783 02 E78.5 05/07 : 132/181/34 /62.LDL up from 53. (12/05)HDL generally < 40.High TG and low HDL are indicators of risk. 10/08: Now on rosuva 20. Labs done today Neuropathy due to diabetes mellitus 223960221 E11.40 NOT CONTROLLED Exam previously documented asymmetry suggesting his neuropathy is not purely diabetic- has hx of spinal stenosis.: At this point, etiology not as important. His feet are at high risk for ulceration /complicat ionRafaell y has L/S stenosis. Not a surgical candidate (severity) per PS&S and Kahl[facility]. May go see [facility].Will work with PT. Consequenc es still impact risk for foot problems- hx of left foot ulcer (08/04). Reviewed importance of lotion to feet- maybe try lotion with benadryl to help decrease itching (and scratching ) Postoperat sudarshan hypothyroidism 98722419 E89.0 On 150mcg TFTs next weekdoing wellTSH= 0.85 (06/06) was 0.5 (02/04)Labs today. Obstructiv e sleep apnea syndrome 95126801 G47.33 Using CPAP every night. Might be able to re-evaluat e given wt. loss but he is OK with continuing . Morbid obesity 720189822 E66.01 NOT CONTROLLED Impacts diabetes, knees, peripheral vascular disease and CV risk. Hasn't been able to get Trulicity at 4.5 mg weekly.Try Mounjaro 10mg. Benign ess ential hypertension 3533649 I10 Doing well- BP at goal . HCTZ and lisinopril [id number] Michael Coombs MD , [facility], [address] [place] [address] 09/27/2023 10:31:18 09/28/2023 11:37:53 Polyneuropathy due to diabetes mellitus 32334895 E11.42 reports pain has improved, interested in going down to 75 bid Spinal brennen nosis of lumbar region 40830832 M48.061 Pt now wheelchair bound, not a surgical candidate per consult. discussed seeking second opinion- already scheduled. Discussed mobility equipment/ home safety- pt feels that has equipment needed but willing to do VNA assessment . Discussed PT- pt agreeable. f/u 3mo for wellness, sooner prn Type 2 td betes mellitus 96870481 E11.21 reviewed recent labs, a1c at goal Morbid obesity 473534887 E66.01 exercise capability very limited, will start PTon GLP1 Dependence on wheel chair 358497053 Z99.3 discussed mobility, home safety, transporta tion Serum crea tinine above reference range 751298040 R79.89 labs improved, discussed minimizing ibu use. ok to cancel renal ultrasound [id number] Isaura Helms, PT Physical Therapy, [facility] [address] [place] [address] 11/09/2023 09:57:41 11/14/2023 16:10:17 Spinal stenosis of lumbar region 25667222 M48.061 Patient is a 68-year old {{female m alexys*}} with a complex medical history that includes LBP and R LE pain and weakness who presents to physical therapy with complaint of right-side d muscle weakness which is {{improvin g not changing* worsening }}. Physical examinatio n was limited by patient's current functional status, including right LE muscle weakness, decreased ROM, and poor activity tolerance. Suspect right-side d lumbar radiculopa thy secondary to pre-existi ng lumbar stenosis. Patient has {{signific ant* moder ate mild}} functional limitation in their activities of daily living. Primary limitation s include: bed mobility, transfers, standing for longer than 1-2 minutes, and walking for more than 1-2 steps. Due to the extent of his functional limitation s, patient would obtain greater benefit from a more intensive inpatient level of care, though he is not willing to go to a short-term rehab facility. Patient is motivated to return to his PLOF. Short Term Goals:In 4 weeks, patient will:1. Perform sit to stand from WC to 2WW in one attempt w/ Min A.2. Stand for 5 min at p-bars or 2WW w/ UE support as needed and close S.3. Ambulate for 10 steps using 2WW w/ gait belt and Min A. Retail Sales Lead Goals:In 8 weeks, patient will:1. Perform sit to stand from WC to 2WW in one attempt w/ CGA.2. Stand independen tly for 10 min at p-bars or 2WW w/ UE support as needed.3. Ambulate for 20 feet using 2WW w/ close S.4. Demonstrat e independen ce with comprehens sudarshan HEP. Treatment Plan: Patient to return for {{4 6 8 10 *}} visits over {{ 8 12 1 0#}} weeks. We expect significan t change in pain, impairment and function in this time frame. Treatment to Include: Continuing assessment , neuromuscu lar re-educati on, therapeuti c exercise, therapeuti c activities , patient/ca regiver education, HEP (initiated ), manual therapy PRN, modalities PRN. [id number] Isaura Helms, PT Physical Therapy, [address] [phone] 12/07/2023 10:45:44 12/08/2023 12:54:32 Spinal stenosis of lumbar region [id number] M48.061 Treatment Plan: Patient to return for {{4 6 8 10 *}} visits over {{4 8 12 1 0#}} weeks. We expect significan t change in pain, impairment and function in this time frame. Treatment to Include: Continuing assessment , neuromuscu lar re-educati on, therapeuti c exercise, therapeuti c activities , patient/ca regiver education, HEP (initiated ), manual therapy PRN, modalities PRN. [id number] Isaura Helms, PT Physical Therapy, [address] [address] 12/21/2023 10:46:39 12/26/2023 07:36:47 Spinal stenosis of lumbar region [id number] M48.061 Treatment Plan: Patient to return for {{4 6 8 10 *}} visits over {{4 8 12 1 0#}} weeks. We expect significan t change in pain, impairment and function in this time frame. Treatment to Include: Continuing assessment , neuromuscu lar re-educati on, therapeuti c exercise, therapeuti c activities , patient/ca regiver education, HEP (initiated ), manual therapy PRN, modalities PRN. [id number] Isaura Helms, PT Physical Therapy, [address] [address] 02/02/2024 10:15:50 02/03/2024 08:01:27 Spinal stenosis of lumbar region [id number] M48.061 Treatment Plan: Patient to return for {{4 6 8 10 *}} visits over {{4 8 12 1 0#}} weeks. We expect significan t change in pain, impairment and function in this time frame. Treatment to Include: Continuing assessment , neuromuscu lar re-educati on, therapeuti c exercise, therapeuti c activities , patient/ca regiver education, HEP (initiated ), manual therapy PRN, modalities PRN. [id number] Tremaine Rodriguez MD Endocrino logy, [address] [address] 04/05/2024 13:35:25 04/05/2024 15:34:53 Peripheral angiopathy due to diabetes mellitus [id number] E11.51 VASCULAR COMPONENT NOT CONTOLLED. A1c= 6.3 (04/07); was 6.0 (01/05) was 6.5 (06/06) was 7.1 (12/05) was 6.8 (05/06) was 6.9 (03/05 and 08/04 and 05/05); was 7.0% (01/02); (first time since 2012). Was up to 8.9 (05/04) with no value since 04/02 of 7.1. Metformin with GLP-1. Trulicity (4.5)Weigh t better (per pt) and meter values are at goal. Hx (08/04) of left foot ulcer - has brawny changes indicating chronic venous insufficie ncy; monofilame nt abnormal on left but he has hx of spinal stenosis which is likely contributi ng.06/06: Healed left foot ulcer. Has lost weight. doing great.10/08 : Feet at high risk. In wheelchair because of severe back problems. Both feet numb.Has seen neurosurg and told not operative candidate. Encourage local care with daily lotion. 10/08: Now on rosuva 20. Labs pending (today) Follow labs and adjust prn. 03/05: Increased Trulicity to 4.5 for CV risk and weight.: On 3.0 d/t unavailabi lity of 4.5. Hope to get back to 4.5 or even switch to Mounjaro.1 : Still on 3.0. Ok to continue. If can get 4.5, ok to increase (benefit for wt, CV risk reduction, back issues, etc.)10/08: Try change to mounjaro to help with weight and CV benefit.: Doing well on trulicity/ metformin. Dyslipidem ia due to type 2 diabetes mellitus [id number] 02 E78.5 01/05: 91/72/33/4 4 doing well on rosuva : 132/181/34 /62.LDL up from 53. (12/05)HDL generally < 40.High TG and low HDL are indicators of risk. 10/08: Now on rosuva 20. Labs done today Neuropathy due to diabetes mellitus [id number] E11.40 NOT CONTROLLED Exam notes asymmetry suggesting his neuropathy is not purely diabetic- has hx of spinal stenosis.S augustine stenosis looking to surgery.Ov soledad, feet are at high risk for ulceration /complicat ion. Had foot ulcer (left) in past. [facility] hoping to correct possible c-spine issues before talking about other surgeries (L/S and knee).He's working hard to do some exercises while in chair. Able to stand/pivo t (couldn't do that few months ago) Consequenc es still impact risk for foot problems- hx of left foot ulcer (08/04). Reviewed importance of lotion to feet- maybe try lotion with benadryl to help decrease itching (and scratching ) Postoperat sudarshan hypothyroidism 16039190 E89.0 NOT CONTROLLED On 150mcg TFTs next weekClinic ally [place] TSH= 0.1 (04/07) was 0.13 (01/05) was 0.08 (10/08); was 0.85 (06/06) was 0.5 (02/04) Decrease to 150mcg x 6.5/7.labs in 3 months Obstructiv e sleep apnea syndrome 75918597 G47.33 Using CPAP every night. Might be able to re-evaluat e given wt. loss but he is OK with continuing . Morbid obesity 702495503 E66.01 NOT CONTROLLED Impacts diabetes, knees, peripheral vascular disease and CV risk. Doing well on Trulicity at 4.5 mg weekly. Benign ess ential hypertension 4704685 I10 Doing well- BP at goal . HCTZ and lisinopril [id number] PURNIMA PEREZ, ANGÉLICA FP, [facility], [address] [place] [address] 07/02/2024 09:00:37 07/02/2024 10:42:31 Adult health examination [id number] Z00.01 Reviewed recommende d routine age and gender specific health screenings and vaccines per current guidelines . Discussed healthy lifestyle recommenda tions- 150 minutes per week of physical activity, varied nutrient-d ense diet, stress management , sun safety, seeing eye and dental regularly. RTC in 1 year, sooner prn. Counseled by member of primary health care team [id number] Z71.9 Today we discussed ways to reduce your 10-year cardiovasc ular disease risk. Things that decrease risk for cardiovasc ular events include eating a diet high in fiber (fruits and vegetables ) and low in simple carbohydra linnea (bread, rice, pasta, alcohol, potatoes), decreasing processed foods, limiting juice and alcohol, limiting saturated fats (butter, ice cream, and cheeses), and adding regular daily activity. Having blood pressure that is <130/80. Having well controlled cholestero l (LDL and triglyceri mariluz) by eating a healthy diet and taking medication s when necessary. Managing daily stress with meditation or yoga. Depending on your other cardiovasc ular risks your practition er may recommend taking daily aspirin. Depression screening 171 087927 Z13.31 depression screening tool administer ed Screening for alcohol abuse 445284216 Z13.39 Alcohol use screening tool administer ed Active or passive immunization 369220512 Z23 Pneumo: reminded pt to get at the pharmacySh ingles: reminded pt to get at the pharmacyFl u: will get it today 07/02/24 MG Screening for malignant neoplasm of colon 113595288 Z12.11 pt did a stool kit test in 2022- 07/02/24MG due for repeat Generalize d osteoarthritis 468142759 M15.0 was referred to [facility] for bilat knee OA, was offered replacemen t surgerywas seeing PT for shoulderpt states pain is improving overall Benign ess ential hypertension 2660156 I10 normotensi ve can monitor at home Polyneurop athy due to diabetes mellitus 78799588 E11.42 reports pain has improved, will trial 50 BIDif neuropathy sx reoccurr ok to go back to 75 Morbid obesity 437624264 E66.01 is making some improvemen ts w/ exercise and mobilityon GLP1 Type 2 td betes mellitus 36475244 E11.21 -eye exam due, pt aware 07/02/24 MG-last a1c was 6.3 on 03/15/24 followed by mishel, recent a1c at goal, on GLP1 Impacted cerumen 9183401 6 H61.23 irrigation by staff today, dicussed safe ear cleaning Advance di rective discussed with patient [id number] Z71.89 provided MOLST, pt wants to take home and think about, schedule f/u to sign Spinal brennen nosis of lumbar region 75796954 M48.061 Pt now wheelchair , has regained some limited mobility. Discussed returning to PT- declines for now- doing exercises at home Bilateral hand weakness [id number] 9366796 R29.898 reports surgeon at [facility] offering surgery for c spine, however unclear how much therapeuti c benefit as sx could be due to bilateral carpal tunnel per pt. is doing hand exercises. Discussed referral to OT or EMG to determine diagnosis of carpal tunnel, pt declines for now [id number] Tremaine Rodriguez MD Endocrino logy, [facility] [address] [facility] [address] [facility] [place] [address] 12/06/2024 10:16:30 12/06/2024 12:56:32 Postoperative hypothyroidism 38262294 E89.0 Not controlled On 150mcg TFTs next weekClinic ally [place] TSH= 0.32 (12/07) was 0.1 (04/07) was 0.13 (01/05) was 0.08 (10/08); was 0.85 (06/06) was 0.5 (02/04) after value of 0.1, decrease to 150mcg x 6.5/7. 12/07: TSH improving. Not quite at goal. follow labs.labs in 3 months Peripheral angiopathy due to diabetes mellitus 469567116 E11.51 VASCULAR COMPONENT NOT CONTOLLED. A1c= 6.8 (12/07) was 6.3 (04/07); was 6.0 (01/05) was 6.5 (06/06) was 7.1 (12/05) was 6.8 (05/06) was 6.9 (03/05 and 08/04 and 05/05); was 7.0% (01/02); (first time since 2012). Was up to 8.9 (05/04) with no value since 04/02 of 7.1. Metformin with GLP-1. Trulicity (4.5)Weigh t better (per pt) and meter values are at goal. Hx (08/04) of left foot ulcer - has brawny changes indicating chronic venous insufficie ncy; monofilame nt abnormal on left but he has hx of spinal stenosis which is likely contributi ng.06/06: Healed left foot ulcer. Has lost weight. doing great.10/08 : Feet at high risk. In wheelchair because of severe back problems. Both feet numb.Has seen neurosurg and told not operative candidate. - Encourage local care with daily lotion. LIPIDS: better on rosuva 20.(12/07) 03/05: Increased Trulicity to 4.5 for CV risk and weight.: On 3.0 d/t unavailabi lity of 4.5. Hope to get back to 4.5 or even switch to Mounjaro.1 : Still on 3.0. Ok to continue. If can get 4.5, ok to increase (benefit for wt, CV risk reduction, back issues, etc.)10/08: Try change to mounjaro to help with weight and CV benefit.: Doing well on trulicity/ metformin. also rosuva 20. Neuropathy due to diabetes mellitus 325841469 E11.40 NOT CONTROLLED Past exam- asymmetry suggesting his neuropathy is not purely diabetic- has hx of spinal stenosis.S augustine stenosis looking to surgery.Ov soledad, feet are at high risk for ulceration /complicat ion. Had foot ulcer (left) in past. [facility] hoping to correct possible c-spine issues before talking about other surgeries (L/S and knee).He's working hard to do some exercises while in chair. Able to stand/pivo t (couldn't do that few months ago) Consequenc es still impact risk for foot problems- hx of left foot ulcer (08/04). Reviewed importance of lotion to feet- maybe try lotion with benadryl to help decrease itching (and scratching ) Dyslipidem ia due to type 2 diabetes mellitus 2882880183 02 E78.5 On rosuva : 99/90/43/3 24: 91/72/33/4 4 doing well on rosuva : 132/181/34 /62.LDL up from 53. (12/05)HDL generally < 40.High TG and low HDL are indicators of risk. 12/07: profile in target ranges. Morbid obesity 038149353 E66.01 NOT CONTROLLED Impacts diabetes, knees, peripheral vascular disease and CV risk. Doing well on Trulicity at 4.5 mg weekly. Obstructiv e sleep apnea syndrome 58051100 G47.33 Using CPAP every night. Might be able to re-evaluat e given wt. loss but he is OK with continuing . Benign ess ential hypertension 9526854 I10 Doing well- BP at goal . HCTZ and lisinopril Proteinuria 97539555 R80 .8 Intermitte nt- increased value 12/07 vs. previous but had UTI.ACR= 90.5 (12/07 in setting of UTI) was 41.7 (01/05) was 50 (2); was 11.8 (12/05) Repeat in 01/06. [id number] Janet Fregoso MD , [facility], [address] [place] [address] 11/22/2024 09:01:13 11/22/2024 11:21:09 Emery hematuria 538515418 R31.0 Intermitte nt gross hematuria. Differenti al includes UTI, kidney stones, bladder stones, or bladder lining issues. Benign kidney cyst not a cause. Further investigat ion needed to rule out serious conditions like bladder cancer. Discussed urologist referral for further evaluation . - Order urinalysis and urine culture. - Order ultrasound of the bladder and kidneys. - opening today, scheduled. - Refer to urologist for further evaluation , including possible cystoscopy . Immunization due 3578577 08 Z23 Shingles: 11/22/24 asPneumoni a: advised 11/22/24 as Peripheral angiopathy due to diabetes mellitus 018448133 E11.51 Diabetes well-contr olled with A1c of 6.3%. Regular kidney function monitoring necessary due to medication and diabetes management .- Continue current diabetes management plan.- Order BMP for kidney function assessment . Mass of ur inary bladder 179236304 N32.89 Addendum: 11/22/2024 7:54 pmultrasou nd of kidney and bladder today showed:1.1 cm posterior R sided bladder mass ; R renal cyst 4.9 cm.revised referral to urology, ordered stat. will inform pt. Health Concerns Section Related Observation LastModified by Organization Detai ls LastModified Time None Recorded Concern Status LastModified by Organization Details LastModified Time None Recorded Advance Directives Directive Y: Payers Encounter Date Sequence Insurance Name Policy Number Policy Sen Covered Member ID Sen Member ID Guarantor Name 02/02/2024 1 [employer] Prashant Whitmore [id number] Prashant Whitmore 04/05/2024 1 [employer] Prashant Whitmore [id number] Prashant Whitmore 07/02/2024 1 [employer] Prashant Whitmore [id number] Prashant Whitmore 11/22/2024 1 [employer] Prashant Whitmore [id number] Prashant Whitmore 12/06/2024 1 [employer] Prashant Whitmore [id number] Prashant Whitmore Notes Date Note Type Note Provider Name and Address Organization Details Recorded Time 04/05/2024 text/html ThyroidReported bypatient.Previous Evaluation:Ultrasound date (see below. last 09/2018); Previous biopsies date (RIGHT Benign in 12/01; Isthmus, right and left benign in 01/2013.); TSH: (0.1 (04/07) was 0.13 (01/05) was 0.85 (06/06) was 0.5 (02/04) was 0.06 (03/05); was 0.07 (02/03); was 0.08 (05/05); was 0.05 (11/02); was 0.32 (04/02); was 0.24 (09/02); was 0.13; Generally low c/w subclinical hyperthyroid.); free T4: (1.48 (04/07) was 1.35 (01/05) was 1.05 (06/06); was 1.52 (02/04) was 1.20 (03/05); was 1.32 (02/03); was 1.12 (05/05); was 1.34 (11/02); was 1.14 (04/02); was 1.17 (09/02); ); neck uptake: (23.2% ( 09/05/12)); neck scan: (09/05/12: Equivocal hot nodule in isthmus-on u/s no vascular flow, left lobe cold nodule on scan- u/s has corresponding nodule measuring 4.4 x 4.2 x 2.9 cm.) Treatment:levoxyl, dose: 150 mcg, frequency: (daily (since 06/06); started by Wil (05/10/22)); Takes in AM. Waits 30 min (bkfst/coffee). Constitutional:no cold intolerance; no heat intolerance Neck:no difficulty swallowing; no masses; S/P Thyroidectomy by Wil- 2021. Had subclinical hyperthyroid. Heart:no rapid heart rate; no palpitations; no fluttering; no chest pain; no tightness or pressure GI:no constipation; no diarrhea Neurological:no tremor; not jittery/nervous; no insomnia (On CPAP (can't sleep without it).)Notes:08/05: Thyroidectomy 05/06 by Wil.Had nodules on right (2 over 2cm and 1 1-1.3cm); isthmus (3.3cm); and left 4.4 cm. OLD LABS:TSH= was 0.19 (05/01); was 0.22 (11/29)- was 0.4 (03/2016)-fT4=- was 1.14 (05/01); was 1.21 (2016)- was 1.4 (03/30)- was 1.38 PCP: Purnima Perez NP Follow-Up: peripheral angiopathy due to diabetes mellitusFollow-Up: non-toxic multinodular goiterFollow-Up: benign essential hypertensionFollow-Up: type II diabetes mellitus uncontrolledMNGLV 10/08Last labs on 04/07 A1C-6.3 down from last oneLast thyroid US on 1Labs cuedPT had a total thyroidectomy 04/[address] Gibbons in w/c today due to condition in spinel stenosis and the spinal column full of arthritis and can not walk. Pressing on the nerves in spineChecks blood sugars usually every day will add meter to chartNo new concernsPT having neck and back surgery upcoming having CT scan next week. Apr 22 has a follow up with surgeon. in past, son prashant was at visit Spinal stenosis.MRI 07/07: L/S degenerative changes with severe canal stenosis at L2-L3 and L3-L4 and L4-5 and L5-S1.Adelfo at [facility]- said C3-5 pressing on cord. wants to address that first.Getting CT 04/10/24. Had MRI before. PMHx:Thyroidectomy 05/06 (Wil)- [facility] with subclinical hyper.08/04: Left heel ulcer (previous episode in past) cleared by 03/05.H4EWAbqdcws00/23: Deg. disc disease as reason L1-L5 and S1-S2. Can't walk. Using walker.Appt with PS&S: told it was so severe and only pain management and PT.10/08: Worsening lower back issues with spinal stenosis. PS&S told him to get PT and f/u in few months. Has appt with [facility] to see if any other options.04/07: Told of cervical spine problems - need to fix that first before addressing lower back and knees. Social Hx:Retired 04/05. Work was sedentary (was [place]- 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 Had gotten to [phone]. Fell down stairs helping daughter- left knee buckled. Hasn't been able to do as much. Not using cane ( says he should)06/06: Tomorrow starts PT. still works at [employer] on [address] .10/08: Tries to do leg lifts side of bed. left leg not bad. right leg 10-20 degrees.Recognizes has to do all the things he used to do (drive, errands for other family members).04/07: in wheelchair most of the time- can stand and x-ramy. balance makes walking hard.Leg raises and extensions. up and down off wheelchair. also thigh-master for upper extremities. hand-grasp tools too. Family Hx:mother Type 1 DM, d 60 [place];New grandson (06/05) total of 7. 2 daughters going through ginfgivr69/23: Total of 7. [place] born 06/05. oldest going into .10/08: [place] great- almost talking (1.5). Oldest Tiara is athlete (middle school)04/07: All good. [place] will be 2 in 06/07. TYPE 2 DIABETES:T2DM with past hx of foot ulcer. Better in 2021. Worse recently (08/04). A1c= 6.3 (04/07); was 6.0 (01/05 and 10/08); was 6.5 (06/06) was 7.1 (12/05) was 6.8 (08/05); was 6.9 (02/03 and 08/04 and 05/05); was 7.0 (01/02- best since 2012!); was 8.9 (05/04); was 7.1% (04/02); was 7.6 (09/02); was 7.5; increasing from 7.1 (05/01); Had been 7.6 like 03/30; (was 8.6). LIPIDS01/05: 91/72/33/44 rosuva 20.06/06: 132/181/34/62; simva 20mg. fish oil. suggest rosuva 20mg. Metformin 1000 mg BID only. Trulicity 4.5 (since 06/06) because of supplies. WEIGHT: can't do weight. Has decreased based on how clothes fit. Was 295 (office recently); had been 363 (06/02).generally only eats BID. GLUCOSE LOG:AM (per download): 95-110 (04/07; one value over 200); was 80-140 (10/08): was 110-130 (06/06); was generally 100-130 (01/02).Didn't bring in past (08/05 or 08/04). Says he lost meter but just re-found it. 04/07: other times of day: 90-115 04/07: On lisinopril (20), rosuva 20mg. also thyroid (see below). Hx foot ulcer- resolved. Developed (08/04) after cellulitis after trip to [place] and lots of walking. DIET:B: calix mix and yogurt and turkmen muffin (guacamole) and coffee.Not much potatoes or rice.D: Protein and veggie. SYMPTOMS:Little nocturia (1x; about after 5 hours of sleep- not a good sleeper and on CPAP).No polyuria (no change).No polydipsia: says he doesn't drink enough. Ongoing numbness in feet (bilat in 10/08). Hx of spinal stenosis.In wheelchair- can barely stand on his own. Can't transfer to car (can't see grands in sports)Hx of fall down front steps- injured left knee (08/05) Can't walk or use bike (recumbent at home) as in past. Previous event in 2014 (No recurrence): Was woozy lightheaded with some slurring while driving. (7:30AM). Waited till recovered (maybe 30 minutes). Drove home and slept for 15 hours (much more than his usual). BG was 140s and then up to 180-190 and didn't go back down for about a week. Fluctuating lately 125-150. Art thought BP might be too low and decrease meds. Severe sx from arthritis.Can't walk d/t knees but also DJD (L/S spine) Has problem with knees- was football player in HS. 10/08: fingers and feet both numb. ROS:No SOB.Had COVID in fall 2020. was mild.No severe h/a.No n/v or abdominal pain.No muscle pains or cramping. Tremaine Rodriguez MD [address] [place] [address], [phone], [facility] 04/05/2024 14:41:44 07/02/2024 text/html #CPEMed updates/concerns- see below. hasnt had pain in long time. cutting back on tylenol, ibuprofen. will get twinges of something once in awhile. still w/ numbness in feet, fingers. Dr Emanuel at [facility] is open to surgery- 3 discs in neck that could be part of problem- numbness in hands and balance. still doing hand exercises. using shower chair. every once in awhile gets pain in elbow down to forehead. trouble grabbing things. cant package pick up yu off table.Screenings due- labs 04/07. due for dm eye, colo, pneumo, shinglesExercise- can get out of wheelchair and walk with walker again. can walk 25% of time during the day.Mood- betterSubst use- rare etohSocial updates- lives w/ and son, grand baby. 7 grandkids. retired #SEVERE DISC STENOSIS L2-S1#chronic low back pain/DDD/spinal stenosis12/15- Pt reporting hx of spinal stenosis diagnosed decades ago previously relieved by PT, rereferred to PS&- evaluatd, told to try PT and then RTC1- significant worsening of symptoms- pain, trouble walking, poor balance, new use of walker, difficulty completing ADLs, unilateral weakness. plan for xray, restart PT, rerefer to PS&SMRI done05/30- reviewed xray results, rx llceqnhyag60/31- incr to 100, BID06/17- pred burst, mri supqmzg13/20- urgent neurosurg referral09/27/23- Pt now wheelchair bound, not a surgical candidate per consult. discussed seeking second opinion. reports pain has improved, interested in going down to 75 bid. start PT, VAN for home safety assessment.did PT 11/09/23-02/02/24#T2DM, postop hypothyroidism, obesitylast visit Dr Rodriguez- Doing well on trulicity and metformin. TSH low. adjust dose. plans for cervical spine surgery, Has lost weight ANGÉLICA GARNETT [address] [place], [phone], [facility] 07/02/2024 14:20:05 11/22/2024 text/html Patient informed and consents to use of AI assisted recording to improve documentation of visit.Word substitution may have occurred and may have gone unnoticed and uncorrected. The patient, with a history of diabetes and spinal stenosis, presents with hematuria.He has hematuria, describing the urine as dark and similar to cranberry juice, which first appeared on Tuesday morning. Despite increased water intake, the discoloration persisted, temporarily lightening to the color of iced tea before returning to a darker shade. No associated pain, burning, or dizziness is reported.A previous MRI identified a benign cyst on his right kidney. He has noted proteinuria in recent blood tests, which he attributes to diabetes management. His diabetes is well-controlled with an A1c of 6.3. He is currently taking medications for diabetes, although specific medications and dosages were not discussed.He has a history of spinal stenosis, which has significantly impacted his mobility over the past year, leading to wheelchair use and now transitioning to a walker. He has not experienced any recent changes in his blood pressure, which he states is 'great'.He does not smoke or consume alcohol anymore.[id number] : 6.3% (2022)RADIOLOGYMRI: Benign cyst on the right kidney (2022) Janet Fregoso MD [address] [place], [id number], [facility] 11/22/2024 19:54:40 12/06/2024 text/html ThyroidReported bypatient.Previous Evaluation:Ultrasound date (see below. last 09/2018); Previous biopsies date (PAST S/P THYROIDECTOMY: RIGHT Benign in 12/01; Isthmus, right and left benign in 01/2013.); TSH: (0.32 (12/07) was 0.1 (04/07) was 0.13 (01/05) was 0.85 (06/06) was 0.5 (02/04) was 0.06 (03/05); was 0.07 (02/03); was 0.08 (05/05); was 0.05 (11/02); was 0.32 (04/02); was 0.24 (09/02); was 0.13; Generally low c/w subclinical hyperthyroid.); free T4: (1.25 (12/07) was was 1.48 (04/07) was 1.35 (01/05) was 1.05 (06/06); was 1.52 (02/04) was 1.20 (03/05); was 1.32 (02/03); was 1.12 (05/05); was 1.34 (11/02); was 1.14 (04/02); was 1.17 (09/02); ); neck uptake: (23.2% ( 09/05/12)); neck scan: (09/05/12: Equivocal hot nodule in isthmus-on u/s no vascular flow, left lobe cold nodule on scan- u/s has corresponding nodule measuring 4.4 x 4.2 x 2.9 cm.) Treatment:generic, dose: 150 mcg, frequency: (x 6.5/7 (12/07); was daily since 06/06; started by Wil (05/10/22)); Takes in AM. Waits 30 min (bkfst/coffee). Constitutional:no cold intolerance; no heat intolerance Neck:no difficulty swallowing; no masses; S/P Thyroidectomy by Wil- 2021. Had subclinical hyperthyroid. Heart:no rapid heart rate; no palpitations; no fluttering; no chest pain; no tightness or pressure GI:no constipation; no diarrhea Neurological:no tremor; no anxiety; not jittery/nervous; no insomnia (On CPAP (can't sleep without it).)Notes:08/05: Thyroidectomy 05/06 by Wil.Had nodules on right (2 over 2cm and 1 1-1.3cm); isthmus (3.3cm); and left 4.4 cm. OLD LABS:TSH= was 0.19 (05/01); was 0.22 (11/29)- was 0.4 (03/2016)-fT4=- was 1.14 (05/01); was 1.21 (2016)- was 1.4 (03/30)- was 1.38 PCP: Purnima Perez NP Follow-Up: peripheral angiopathy due to diabetes mellitusFollow-Up: benign essential hypertensionFollow-Up: type II diabetes mellitus uncontrolled PT had a total thyroidectomy 04/[address] Gibbons in w/c today due to condition in spinel stenosis and the spinal column full of arthritis and can not walk. Pressing on the nerves in spineChecks blood sugars usually every day will add meter to chartNo new concerns in past, son rpashant was at visit Spinal stenosis.MRI 07/07: L/S degenerative changes with severe canal stenosis at L2-L3 and L3-L4 and L4-5 and L5-S1.[facility]elf[facility] at [facility]- said C3-5 pressing on cord. wants to address that first.Getting CT 04/10/24. Had MRI before. *Since 2022, worsening M/S issues causing decreased mobility PMHx:Thyroidectomy 05/06 (Wil)- MNG with subclinical hyper. 08/04: Left heel ulcer (previous episode in past) cleared by 03/05.[id number]: Deg. disc disease as reason L1-L5 and S1-S2. Can't walk. Using walker.Appt with PS&S: told it was so severe and only pain management and PT.10/08: Worsening lower back issues with spinal stenosis. PS&S told him to get PT and f/u in few months. Has appt with [facility] to see if any other options.04/07: Told of cervical spine problems - need to fix that first before addressing lower back and knees.12/07: Improving- not using wheelchair as much. Didn't have back surgery.blood in urine 2 weeks ago. told of UTI. Social Hx:Retired 04/05. Work was sedentary (was in [place]- 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 Had gotten to [phone]. Fell down stairs helping daughter- left knee buckled. Hasn't been able to do as much. Not using cane ( says he should)06/06: Tomorrow starts PT. still works at [employer] on [address]10/08: Tries to do leg lifts side of bed. left leg not bad. right leg 10-20 degrees.Recognizes has to do all the things he used to do (drive, errands for other family members).04/07: in wheelchair most of the time- can stand and x-ramy. balance makes walking hard.Leg raises and extensions. up and down off wheelchair. also thigh-master for upper extremities. hand-grasp tools too.12/07: Improving by doing things around house. can go up/down stairs. out to lunch- can get in/out of car. Family Hx:mother Type 1 DM, d 60 [place];New grandson (06/05) total of 7. 2 daughters going through [id number]/23: Total of 7. [place] born 06/05. oldest going into .10/08: [place] great- almost talking (1.5). Oldest Tiara is athlete (middle school)04/07: All good. [place] will be 2 in 06/07.12/07: all ok. TYPE 2 DIABETES:T2DM with past hx of foot ulcer. Better in 2021. Worse recently (08/04). A1c= 6.8 (12/07) was 6.3 (04/07); was 6.0 (01/05 and 10/08); was 6.5 (06/06) was 7.1 (12/05) was 6.8 (08/05); was 6.9 (02/03 and 08/04 and 05/05); was 7.0 (01/02- best since 2012!); was 8.9 (05/04); was 7.1% (04/02); was 7.6 (09/02); was 7.5; increasing from 7.1 (05/01); Had been 7.6 like 03/30; (was 8.6). ACR= 90.5 (12/07 at time of UTI) was 41.7 (01/05) was 50 (10/08); was 11.8 (12/05)- typically under 20. WEIGHT: can't do weight. Has decreased based on how clothes fit. Was 295 (office recently); had been 363 (06/02).generally only eats BID. LIPIDSrosuva 20.12/07: 99/90/43/385: 91//23: 132/181/34/62; simva 20mg. fish oil. suggest rosuva 20mg. Metformin 1000 mg BID only. Trulicity 4.5 (since 06/06) because of supplies. GLUCOSE LOG:Reports AM: 110-120s (12/07). AM (per download): 95-110 (04/07; one value over 200); was 80-140 (10/08): was 110-130 (06/06); was generally 100-130 (01/02).Didn't bring in past (08/05 or 08/04). Says he lost meter but just re-found it. 04/07: other times of day: 90-11504/07: On lisinopril (20), rosuva 20mg. also thyroid (see below). Hx foot ulcer- resolved. Developed (08/04) after cellulitis after trip to [place] and lots of walking. SYMPTOMS:Nocturia (1x; about after 5 hours of sleep- not a good sleeper and on CPAP).No polyuria (no change). drinking more with recent UTI (12/07). more volume, less often.No polydipsia: some intentional with UTI. Ongoing numbness in feet (bilat in 10/08). Hx of spinal stenosis.In wheelchair- can barely stand on his own. Can't transfer to car (can't see grands in sports)Hx of fall down front steps- injured left knee (08/05) Can't walk or use bike (recumbent at home) as in past. Previous event in 2014 (No recurrence): Was woozy lightheaded with some slurring while driving. (7:30AM). Waited till recovered (maybe 30 minutes). Drove home and slept for 15 hours (much more than his usual). BG was 140s and then up to 180-190 and didn't go back down for about a week. Fluctuating lately 125-150. [place] thought BP might be too low and decrease meds. 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 ROS:No SOB.Had COVID in fall 2020. was mild.No severe h/a.No n/v or abdominal pain.No muscle pains or cramping. Patient has agreed to allow the participation of a professional student in today? s visit. This consent allows for a professional student to: gather medical history, review present medications, review past medical history and complaints, perform non-sensitive parts of physical exam without supervising practitioner present, and participate in discussion with patient and practitioner of diagnosis and treatment plans. Student name:Student Type: {{MIGUEL MURILLO [employer] ATTENDANT ISSA GUAMAN MD*}} Tremaine Rodriguez MD [address] [place] [address], [id number], [facility] 12/06/2024 12:17:50
== END 2024-12-27 15:39 | disposition home or self-care (01) ==
LOC: HO.HUSH 13:07
PROVIDERS: PCP Family Medicine; Visit Provider Urology
DX: R31.0 Gross hematuria (principal); N32.89 Other specified disorders of bladder; Z87.440 Personal history of urinary (tract) infections; Z12.5 Encounter for screening for malignant neoplasm of prostate
CPT/HCPCS: 98001

== ENCOUNTER → 2024-12-27 13:07 | Outpatient (BNVA) | payer OTHER, SELFPAY | PROVIDERS: PCP Family Medicine; Visit Provider Urology ==